=== PATIENT | female | born 1975 | race Caucasian/White ===

== ENCOUNTER 2017-06-02 18:47 | Observation (INO) | payer MEDICAID, SELFPAY ==
[2017-06-02 18:48] VITALS: BP 104/59; PULSE 80; RESP 12; TEMP 36.8; O2SAT 100; BMI 22.6
--- NOTE | 2017-06-02 19:40 | PC.NURSE ---
Addendum entered by Mateo Schulz RN 06/02/17 20:04: no loss of bladder or bowel Original Note: pt had convulsive episode at 1930, use of vns did not appear effective, iv placed, lorazapam given.
[2017-06-02 19:55] LABS: Basophils # 0.1 K/mm3 (0-0.2); Basophils % 0.7 % (0.1-2.0); Eosinophils # 0.1 K/mm3 (0.0-0.4); Eosinophils % 1.4 % (0.1-12.0); Hematocrit 44.8 % (37.0-47.0); Hemoglobin 13.8 g/dL (12.2-16.2); Lymphocytes # 2.5 K/mm3 (0.7-4.5); Lymphocytes % 30.5 K/mm3 (10-50); Mean Corpuscular HGB Conc 30.9 g/dL (31.8-35.4); Mean Corpuscular Hemoglobin 30.1 pg (27.0-31.2); Mean Corpuscular Volume 97.5 fl (81-99); Monocytes # 0.5 K/mm3 (0.1-1.0); Monocytes % 6.5 % (1.7-9.3); Neutrophils # 5.1 K/mm3 (1.8-7.8); Platelet Count 273 K/mm3 (142-424); Red Cell Distribution Width 12.3 % (11.5-17.5); White Blood Count 8.4 K/mm3 (4.8-10.8)
[2017-06-02 20:04] LABS: Alanine Aminotransferase 35 U/L (12-78); Albumin/Globulin Ratio 1.3 (1.1-1.8); Alkaline Phosphatase 67 U/L (46-116); Anion Gap 16.6 mEq/L (5-15); Aspartate Amino Transferase 20 U/L (15-37); Bilirubin,Total 0.4 mg/dL (0.2-1.0); Blood Urea Nitrogen 15 mg/dL (7-18); Calcium 8.7 mg/dL (8.5-10.1); Carbon Dioxide 25 mmol/L (21.0-32.0); Chloride 107 mmol/L (98-107); Creatinine Clearance Estimated 76 mL/min (0-300); Creatinine,Serum 0.98 mg/dL (0.55-1.02); Estimated Glomerular Filt Rate 63 ml/min (>60); GFR (African American) 76 ML/MIN (>60); Globulin 3.2 gm/dl (1.3-3.2); Glucose 111 mg/dL (74-106); Potassium 3.6 mmoL/L (3.5-5.1); Sodium 145 mmol/L (136-145); Total Protein,Serum 7.2 gm/dL (6.4-8.2)
--- NOTE | 2017-06-02 20:07 | CT_ITS ---
CT head/brain wo con HISTORY: ITS.REASON: seizure ORDERING PHYSICIAN: Sukumar Viveros MD PATIENT AGE: 41 years COMPARISON: 05/07/2016 TECHNIQUE: Axial images obtained without contrast. Brain and bone windows reviewed. FINDINGS: No midline shift, mass effect, intracranial hemorrhage, hydrocephalus, or extra-axial fluid collection is evident. There is a cavum septum pellucidum is a normal variant The calvarium has an unremarkable appearance. No mastoid effusion. No sinus air-fluid levels.. IMPRESSION: 1. No acute intracranial findings. 2. No change from 05/07/2016
[2017-06-02 20:36] LABS: Appearance,Urine SL CLOUDY (Clear); Bilirubin,Urine Negative (Negative); Blood, Urine Negative (Negative); Color,Urine YELLOW (Yellow); Glucose,Urine (UA) Negative (Negative); Ketones,Urine Negative (Negative); Leukocyte Esterase,Urine Negative (Negative); Microscopic, Urine URINE MICROSCOPIC (MICROSCOPIC); Nitrate,Urine Negative (Negative); Protein,Urine TRACE (Negative); Specific Gravity, Urine 1.015 (1.005-1.030); Urobilinogen,Urine 0.2 EU/dl (0.2)
--- NOTE | 2017-06-02 20:41 | HMH.EDSEIZ ---
ED Disposition Clinical Impression: Epileptic seizure Qualifiers: Epilepsy type: unspecified Intractability: not intractable Status epilepticus: without status epilepticus Qualified Code(s): G40.909 - Epilepsy, unspecified, not intractable, without status epilepticus Disposition: Admitted as Observation Condition on Discharge: Good - Critical Care Critical Care Time: No Attestation: On 06/02/17, the high probability of a clinically significant, sudden or life threatening deterioration of the following system(s) required my full and direct attention, intervention and personal management. The time I documented below is in addition to time spent performing reported procedures but includes the following listed in this critical care notation. Medical Decision Making - Medical Records Medical records reviewed: Yes: I reviewed the patient's medical records. Vital Signs: 06/02/17 18:48 06/02/17 21:32 Temperature 98.3 F 98.9 F Temperature Source Oral Rectal Pulse Rate [Left Radial] 80 68 Respiratory Rate 12 16 Blood Pressure [Left Arm] 117/87 Blood Pressure [Right Arm] 104/59 Blood Pressure Mean [Left Arm] 97 Blood Pressure Mean [Right Arm] 74 Blood Pressure Source [Left Arm] Automatic Cuff Blood Pressure Source [Right Arm] Automatic Cuff Blood Pressure Position [Left Arm] Supine Blood Pressure Position [Right Arm] Supine 02 Sat by Pulse Oximetry 100 100 Oxygen Delivery Method Room Air Nasal Cannula Oxygen Flow Rate (LPM) 2 - Lab Data Lab Results 06/02/17 19:35: WBC 8.4, RBC 4.60, Hgb 13.8, Hct 44.8, MCV 97.5, MCH 30.1, MCHC 30.9 L, RDW 12.3, Plt Count 273, MPV 9.0, Neut % (Auto) 61.0, Lymph % (Auto) 30.5, [place] % (Auto) 6.5, Eos % (Auto) 1.4, Baso % (Auto) 0.7, Neut # (Auto) 5.1, Lymph # (Auto) 2.5, [place] # (Auto) 0.5, Eos # (Auto) 0.1, Baso # (Auto) 0.1 06/02/17 19:35: Sodium 145, Potassium 3.6, Chloride 107, Carbon Dioxide 25, Anion Gap 16.6 H, BUN 15, Creatinine 0.98, Estimated Creat Clear 76, Estimated GFR 63, Est GFR ( Amer) 76, Glucose 111 H, Calcium 8.7, Total Bilirubin 0.4, AST 20, ALT 35, Alkaline Phosphatase 67, Total Protein 7.2, Albumin 4.0, Globulin 3.2, Albumin/Globulin Ratio 1.3 06/02/17 20:30: Urine Color Yellow, Urine Appearance Sl cloudy, Urine pH 7.0, Ur Specific [place] 1.015, Urine Protein Trace, Urine Glucose (UA) Negative, Urine Ketones Negative, Urine Blood Negative, Urine Nitrate Negative, Urine Bilirubin Negative, Urine Urobilinogen 0.2, Ur Leukocyte Esterase Negative, Urine RBC Occasional, Urine WBC Occasional, Ur Squamous Epith Cells 3-5, Amorphous Sediment 2+, Urine Bacteria 1+, Hyaline Casts Occasional 06/02/17 20:46: O2 % 100% ndb, ABG pH 7.39, ABG pCO2 35.3, ABG pO2 430.8 H, ABG HCO3 20.9 L, ABG Total CO2 22.0 L, ABG O2 Saturation 100, ABG Base Excess -4.1 L, Kervin Test Patient unable Result diagrams: 06/02/17 19:35 06/02/17 19:35 Orders (Tests/Meds): ED MEDICATIONS Generic Name Dose Route Start Last Admin Trade Name Freq PRN Reason Stop Dose Admin Sodium Chloride 1,000 mls @ 200 mls/hr 06/02/17 19:45 06/02/17 19:37 Sod Chloride 0.9% 1000ml Bag IV 07/02/17 19:44 200 mls/hr .Q5H ANTONIO Administration Discontinued Medications Generic Name Dose Route Start Last Admin Trade Name Freq PRN Reason Stop Dose Admin Lorazepam 1 mg 06/02/17 19:19 06/02/17 19:36 Ativan 2mg/Ml Vial IV 06/02/17 19:20 1 mg ONCE ONE Administration ORDERS Category Date Time Status CT head/brain wo con Stat Cat Scan 06/02/17 20:07 Taken XR chest AP Stat Exams 06/02/17 20:46 Taken - Radiology Data #1 Image(s): Chest Image Reviewed: Yes I reviewed the patient's radiology image Preliminary Findings: Normal/NAD - CT Data CT Scan: Head Time Received: 23:[address] Reviewed: Yes: I have viewed the radiologist's interpretation Preliminary Findings: Normal/NAD - Physician Consults Physician Consulted: eyad Reason -: Admission Additional Consult: fa
--- NOTE | 2017-06-02 20:46 | XR_ITS ---
XR chest AP HISTORY: Shortness of breath ITS.REASON: sob/sz ORDERING PHYSICIAN: Sukumar Viveros MD PATIENT AGE: 41 years COMPARISON: 05/07/2016 FINDINGS: The cardiomediastinal silhouette and pulmonary vascularity are within normal limits. Neurostimulator device once again noted projecting over the left upper chest with the leads in the left apical area in the paraspinal region. Lungs are otherwise clear. No acute bony abnormalities. IMPRESSION: No change with no acute finding
[2017-06-02 21:05] LABS: Amorphous Sediment,Urine 2+ /lpf; Bacteria,Urine 1+ /lpf; Hyaline Casts,Urine Occasional #/lpf (0); RBC,Urine Occasional #/hpf (0-3); WBC,Urine Occasional #/hpf (0-3)
[2017-06-02 21:14] LABS: ABG Base Excess -4.1 mmol/L (-2.4-2.3); ABG HCO3 20.9 mmhg (22.0-26.0); ABG Oxygen Saturation 100 % (90-100); ABG PCO2 35.3 mmhg (35.0-45.0); ABG PH 7.39 mmol/L (7.35-7.45); ABG PO2 430.8 mmhg (80-100)
[2017-06-02 21:17] LABS: Allen's Test Patient Unable
[2017-06-02 21:32] VITALS: BP 117/87; PULSE 68; RESP 16; TEMP 37.2; O2SAT 100
--- NOTE | 2017-06-02 22:27 | PC.NURSE ---
dr dennis spoke with dr castano about pt.
--- NOTE | 2017-06-02 22:33 | PC.NURSE ---
placed call for neuro, waiting for dr velazquez to return call.
--- NOTE | 2017-06-02 22:51 | PC.NURSE ---
dr croft spoke with dr dennis, to watch pt overnight, did not need transfer. dr dennis speaking with dr castano again at this time.
--- NOTE | 2017-06-02 23:20 | PC.NURSE ---
REPORT RECEIVED FROM ELLE NELSON
[2017-06-02 23:24] VITALS: BP 100/62; PULSE 72; RESP 14; TEMP 37; O2SAT 100
[2017-06-02 23:40] VITALS: BP 109/70; PULSE 82; RESP 18; TEMP 36.1; O2SAT 100; BMI 23.1
[2017-06-03 00:05] VITALS: O2SAT 100
[2017-06-03 04:00] VITALS: BP 104/60; PULSE 75; RESP 20; TEMP 36.3; O2SAT 100
--- NOTE | 2017-06-03 04:40 | PC.NURSE ---
NEW ADMIT THIS SHIFT WITH DX OF EPILEPTIC SEIZURE. SEIZURE PADS IN PLACE, NO SEIZURE ACTIVITY NOTED SINCE ARRIVING TO FLOOR. FAMILY MEMBER AT BEDSIDE. PT ANSWERED ALL QUESTIONS APPROPRIATELY, BUT DROWSY SINCE RECEIVED ATIVAN IN ER. IV SECURE AND PATENT INFUSING LR@75/HR. NO C/O PAIN OR DISCOMFORT. PT NEEDS HOME MEDS ORDERED. RESPIRATIONS EVEN AND UNLABORED. BREATH SOUNDS EQUAL AND CLEAR. PT STABLE. WILL CONTINUE TO MONITOR. REPORT TO BE GIVEN TO ONCOMING NURSE.
[2017-06-03 06:49] LABS: Basophils % 0.2 % (0.1-2.0); Eosinophils % 0.4 % (0.1-12.0); Hematocrit 40.5 % (37.0-47.0); Hemoglobin 12.8 g/dL (12.2-16.2); Lymphocytes % 9.2 K/mm3 (10-50); Mean Corpuscular HGB Conc 31.6 g/dL (31.8-35.4); Mean Corpuscular Hemoglobin 30.3 pg (27.0-31.2); Mean Corpuscular Volume 96.1 fl (81-99); Mean Platelet Volume 9.1 fl (7.4-10.4); Monocytes # 0.4 K/mm3 (0.1-1.0); Monocytes % 4.3 % (1.7-9.3); Neutrophils # 8.9 K/mm3 (1.8-7.8); Neutrophils % 85.9 % (37.0-80.0); Platelet Count 192 K/mm3 (142-424); Red Blood Count 4.22 M/mm3 (4.20-5.40); Red Cell Distribution Width 12.5 % (11.5-17.5); White Blood Count 10.3 K/mm3 (4.8-10.8)
[2017-06-03 06:55] LABS: MANUAL DIFFERENTIAL MANUAL DIFFERENTIAL (MANUAL DIFF)
[2017-06-03 07:02] LABS: Blood Urea Nitrogen 11 mg/dL (7-18); Carbon Dioxide 24 mmol/L (21.0-32.0); Chloride 109 mmol/L (98-107); Creatinine Clearance Estimated 101 mL/min (0-300); Creatinine,Serum 0.75 mg/dL (0.55-1.02); Estimated Glomerular Filt Rate 85 ml/min (>60); GFR (African American) 103 ML/MIN (>60); Glucose 100 mg/dL (74-106); Magnesium 1.9 mg/dL (1.4-2.2); Sodium 141 mmol/L (136-145)
--- NOTE | 2017-06-03 07:26 | P.CONPHA_ITS ---
[facility] Pharmacy VTE Monitoring - Patient Demographics Admission date: 06/02/17 Report Date: 06/03/17 Time: 07:25 Allergies/Adverse Reactions: Patient Allergies carbamazepine [CARBAMAZEPINE] Allergy (Unknown, Verified 06/02/17 18:50) diphenhydramine [DIPHENHYDRAMINE] Allergy (Unknown, Verified 06/02/17 18:50) divalproex sodium [DIVALPROEX SODIUM] Allergy (Unknown, Verified 06/02/17 18:50) Hydantoins [HYDANTOINS] Allergy (Unknown, Verified 06/02/17 18:50) isopropyl alcohol [ISOPROPYL ALCOHOL] Allergy (Unknown, Verified 06/02/17 18:50) lamotrigine [LAMOTRIGINE] Allergy (Unknown, Verified 06/02/17 18:50) levetiracetam [LEVETIRACETAM] Allergy (Unknown, Verified 06/02/17 18:50) loracarbef [LORACARBEF] Allergy (Unknown, Verified 06/02/17 18:50) methylprednisolone [METHYLPREDNISOLONE] Allergy (Unknown, Verified 06/02/17 18: 50) penicillin G [PENICILLIN G] Allergy (Unknown, Verified 06/02/17 18:50) Penicillins [PENICILLINS] Allergy (Unknown, Verified 06/02/17 20:58) phenytoin [PHENYTOIN] Allergy (Unknown, Verified 06/02/17 20:58) topiramate [TOPIRAMATE] Allergy (Unknown, Verified 06/02/17 20:58) valproic acid [VALPROIC ACID] Allergy (Unknown, Verified 06/02/17 20:58) zonisamide [ZONISAMIDE] Allergy (Unknown, Verified 06/02/17 20:58) Height: 1.68 m Weight: 64.892 kg Patient Problems: Current Active Problems Epileptic seizure (Acute) - VTE Risk Labs: VTE Related Lab Results Hgb 12.8 g/dL (12.2-16.2) 06/03/17 06:09 Hct 40.5 % (37.0-47.0) 06/03/17 06:09 Plt Count 192 K/mm3 (142-424) D 06/03/17 06:09 BUN 11 mg/dL (7-18) D 06/03/17 06:09 Creatinine 0.75 mg/dL (0.55-1.02) D 06/03/17 06:09 Estimated Creat Clear 101 mL/min (0-300) 06/03/17 06:09 Was VTE Risk Assessment Performed: Yes VTE Score: 3 VTE Risk Level: Low Risk - Prophylaxis VTE Prophylaxis Ordered?: Yes Types of VTE Prophylaxis: TEDS Knee High Location of Applied Device: Bilateral Lower Extremeties - VTE Diagnosis Confirmed Treatment or plan recommended: Continue Current Treatment
--- NOTE | 2017-06-03 07:41 | PC.NURSE ---
REPORT GIVEN TO Emily GUADALUPE W/C
[2017-06-03 08:00] VITALS: BP 101/50; PULSE 77; RESP 16; TEMP 36.7; O2SAT 95
[2017-06-03 08:03] LABS: Lymphocytes % 8 % (10-50); Monocytes % 4 % (2-9); Neutrophils % 86 % (42-76); Total Cells Counted 100
[2017-06-03 08:04] LABS: Platelet Estimate Normal
--- NOTE | 2017-06-03 09:19 | HMH.HP ---
*Admission Date: 06/02/17 *Chief complaint: seizures *History of present illness: 41 year old female with an ongoing history of seizures who is followed by neurology and has a vagus verve stimulator presented the the ED after she had two seizures within one hour. Her mother reports seizures lasted approx 4-5 minutes with loss of bladder. Patient remained lethargic and disoriented so she brought her to the ED for evaluation. In the ED, patient had a third seizure and was given Ativan. CBC, CMP, UA, CXR and CT head were obtained and found to be unremarkable. Prior to yesterday, last seizure was 13 months ago. Patient reports she has had headaches and dizziness for the last two weeks. She has not missed any doses of her medications prior to the seizure. Patient denies any cough, congestion, fevers or recent illnes. ED physician spoke with her neurologist Dr. Patel who recommended observing her overnight. Patient was admitted for observation. [facility] History Medical History: Denies:: Cancer, Diabetes Mellitus Type 1, Diabetes Mellitus Type 2, MRSA Other Medical History: Reports: Anemia Other Surgeries: Yes: Hysterectomy-Total Amputation: No Fractures: No - *Social History Educational Level: Completed College Smoking Status: Former smoker # Packs/Day (cigarettes): 1 Smoking End Date: 15 YEARS AGO Alcohol Intake: never Occupational Status: employed Housing: house Household Members: family - Psychiatric History Expresses thoughts of harming self/others: None Suicide Plan Description: No Plan *Family Hx:: Anemia, Asthma, Coronary Artery Disease, Heart Attack, Hyperlipidemia, Hypertension, Kidney Disease, Stroke Review of Systems - Review of Systems Review of systems:: pertinent systems reviewed and negative unless documented below - *Neurologic Reports confusion, Reports dizziness, Reports headache(s), Reports seizure-like activity Meds Home Medications Medication Instructions Recorded Confirmed Type Albuterol Sulfate [Albuterol HFA 1 puff IH Q4HP PRN 06/02/17 06/02/17 History Inhaler] Albuterol Sulfate [Albuterol 2.5 mg IH QIDP PRN 06/02/17 06/02/17 History Sulfate 2.5mg/0.5ml Neb] Budesonide/Formoterol Fumarate 10.2 gm IH BID 06/02/17 06/03/17 History [Symbicort 160-4.5 Mcg Inhaler] Fluticasone Propionate [Flovent 50 mcg IH HS 06/02/17 06/03/17 History Diskus] Lacosamide [Vimpat] 200 mg PO DAILY 06/02/17 06/03/17 History Lacosamide [Vimpat] 300 mg PO HS 06/02/17 06/03/17 History SUMAtriptan succinate [Imitrex] 50 mg PO NEEDED PRN 06/02/17 06/02/17 History Topiramate [Topiramate] 3 tab PO DAILY 06/02/17 06/03/17 History Allergies Allergy/AdvReac Type Severity Reaction Status Date / Time carbamazepine [CARBAMAZEPINE] Allergy Unknown Verified 06/02/17 18:50 diphenhydramine Allergy Unknown Verified 06/02/17 18:50 [DIPHENHYDRAMINE] divalproex sodium Allergy Unknown Verified 06/02/17 18:50 [DIVALPROEX SODIUM] Hydantoins [HYDANTOINS] Allergy Unknown Verified 06/02/17 18:50 isopropyl alcohol Allergy Unknown Verified 06/02/17 18:50 [ISOPROPYL ALCOHOL] lamotrigine [LAMOTRIGINE] Allergy Unknown Verified 06/02/17 18:50 levetiracetam [LEVETIRACETAM] Allergy Unknown Verified 06/02/17 18:50 loracarbef [LORACARBEF] Allergy Unknown Verified 06/02/17 18:50 methylprednisolone Allergy Unknown Verified 06/02/17 18:50 [METHYLPREDNISOLONE] penicillin G [PENICILLIN G] Allergy Unknown Verified 06/02/17 18:50 Penicillins [PENICILLINS] Allergy Unknown Verified 06/02/17 20:58 phenytoin [PHENYTOIN] Allergy Unknown Verified 06/02/17 20:58 topiramate [TOPIRAMATE] Allergy Unknown Verified 06/02/17 20:58 valproic acid [VALPROIC ACID] Allergy Unknown Verified 06/02/17 20:58 zonisamide [ZONISAMIDE] Allergy Unknown Verified 06/02/17 20:58 Exam Vital signs and Labs for Last 24 Hours: Temp Pulse Resp BP Pulse Ox 97.3 F L 75 20 104/60 100 06/03/17 04:00 06/03/17 04:00 05/11
--- NOTE | 2017-06-03 09:26 | P.HP_ITS ---
*Admission Date: 06/02/17 *Chief complaint: seizures *History of present illness: 41 year old female with an ongoing history of seizures who is followed by neurology and has a vagus verve stimulator presented the the ED after she had two seizures within one hour. Her mother reports seizures lasted approx 4-5 minutes with loss of bladder. Patient remained lethargic and disoriented so she brought her to the ED for evaluation. In the ED, patient had a third seizure and was given Ativan. CBC, CMP, UA, CXR and CT head were obtained and found to be unremarkable. Prior to yesterday, last seizure was 13 months ago. Patient reports she has had headaches and dizziness for the last two weeks. She has not missed any doses of her medications prior to the seizure. Patient denies any cough, congestion, fevers or recent illnes. ED physician spoke with her neurologist Dr. Patel who recommended observing her overnight. Patient was admitted for observation. [facility] History Medical History: Denies:: Cancer, Diabetes Mellitus Type 1, Diabetes Mellitus Type 2, MRSA Other Medical History: Reports: Anemia Other Surgeries: Yes: Hysterectomy-Total Amputation: No Fractures: No - *Social History Educational Level: Completed College Smoking Status: Former smoker # Packs/Day (cigarettes): 1 Smoking End Date: 15 YEARS AGO Alcohol Intake: never Occupational Status: employed Housing: house Household Members: family - Psychiatric History Expresses thoughts of harming self/others: None Suicide Plan Description: No Plan *Family Hx:: Anemia, Asthma, Coronary Artery Disease, Heart Attack, Hyperlipidemia, Hypertension, Kidney Disease, Stroke Review of Systems - Review of Systems Review of systems:: pertinent systems reviewed and negative unless documented below - *Neurologic Reports confusion, Reports dizziness, Reports headache(s), Reports seizure-like activity Meds Home Medications Medication Instructions Recorded Confirmed Type Albuterol Sulfate [Albuterol HFA 1 puff IH Q4HP PRN 06/02/17 06/02/17 History Inhaler] Albuterol Sulfate [Albuterol 2.5 mg IH QIDP PRN 06/02/17 06/02/17 History Sulfate 2.5mg/0.5ml Neb] Budesonide/Formoterol Fumarate 10.2 gm IH BID 06/02/17 06/03/17 History [Symbicort 160-4.5 Mcg Inhaler] Fluticasone Propionate [Flovent 50 mcg IH HS 06/02/17 06/03/17 History Diskus] Lacosamide [Vimpat] 200 mg PO DAILY 06/02/17 06/03/17 History Lacosamide [Vimpat] 300 mg PO HS 06/02/17 06/03/17 History SUMAtriptan succinate [Imitrex] 50 mg PO NEEDED PRN 06/02/17 06/02/17 History Topiramate [Topiramate] 3 tab PO DAILY 06/02/17 06/03/17 History Allergies Allergy/AdvReac Type Severity Reaction Status Date / Time carbamazepine [CARBAMAZEPINE] Allergy Unknown Verified 06/02/17 18:50 diphenhydramine Allergy Unknown Verified 06/02/17 18:50 [DIPHENHYDRAMINE] divalproex sodium Allergy Unknown Verified 06/02/17 18:50 [DIVALPROEX SODIUM] Hydantoins [HYDANTOINS] Allergy Unknown Verified 06/02/17 18:50 isopropyl alcohol Allergy Unknown Verified 06/02/17 18:50 [ISOPROPYL ALCOHOL] lamotrigine [LAMOTRIGINE] Allergy Unknown Verified 06/02/17 18:50 levetiracetam [LEVETIRACETAM] Allergy Unknown Verified 06/02/17 18:50 loracarbef [LORACARBEF] Allergy Unknown Verified 06/02/17 18:50 methylprednisolone Allergy Unknown Verified 06/02/17 18:50 [METHYLPREDNISOLONE] penicillin G [PENICILLIN G]
[2017-06-03 13:22] LABS: Amphetamine/Metha Screen,Urine Negative ng/mL (<1000); Barbiturates Screen,Urine Negative ng/mL (<200); Benzodiazepines Screen,Urine Negative ng/mL (200); Cannabinoid Screen,Urine Negative ng/mL (<50); Cocaine Screen,Urine Negative ng/g (<300); Methadone Screen,Urine Negative ng/mL (<300); Opiate Screen,Urine Negative ng/mL (<300); Phencyclidine Screen,Urine Negative ng/mL (<25)
[2017-06-03 16:00] VITALS: BP 93/50; PULSE 85; RESP 18; TEMP 37.1; O2SAT 100
--- NOTE | 2017-06-03 18:49 | PC.NURSE ---
PATIENT STATES SHE IS FEELING BETTER. SHE IS MUCH MORE ALERT THAN THIS MORNING AND AFTERNOON. DENIES PAIN AT THIS TIME. C/O DIZZINESS WHEN AMBULATING TO [facility]. SHE HAS HAD SEVERAL BOWEL MOVEMENTS TODAY. PATIENT STATES SHE THINKS SHE BIT HER TONGUE DURING HER SEIZURE YESTERDAY. CALL LIGHT WITHIN REACH WILL CONTINUE TO MONITOR
--- NOTE | 2017-06-03 19:14 | PC.NURSE ---
REPORT GIVEN TO GIANLUCA SHANKS RN
--- NOTE | 2017-06-03 19:15 | PC.NURSE ---
PT DNR, PURPLE BRACELET ON, SIGNED AND ON CHART. REPORT RECEIVED FROM SALLY
[2017-06-03 20:00] VITALS: BP 88/45; PULSE 85; RESP 16; TEMP 36.7; O2SAT 98
[2017-06-03 20:30] VITALS: O2SAT 98
[2017-06-04 04:00] VITALS: BP 96/63; PULSE 80; RESP 18; TEMP 36.7; O2SAT 99
--- NOTE | 2017-06-04 05:32 | PC.NURSE ---
PT SLEPT MOST ALL OF SHIFT, MOM AT BEDSIDE. IV REMAIN INTACT AND PATENT, INFUSING LR @75/HR. NO COMPLAINTS OF PAIN OR DISCOMFORT REPORTED. SEIZURE PADS IN PLACE. NO SEIZURES NOTED. BREATH SOUNDS EQUAL AND CLEAR ON ROOM AIR. PT HAS TEDS ON BILATERALLY. PT STABLE. WILL CONTINUE TO MONITOR. REPORT TO BE GIVEN TO ONCOMING NURSE.
--- NOTE | 2017-06-04 07:29 | PC.NURSE ---
REPORT GIVEN TO Keanu FRASER W/C
[2017-06-04 08:00] VITALS: BP 104/58; PULSE 81; RESP 18; TEMP 36.8; O2SAT 100
--- NOTE | 2017-06-04 08:17 | HMH.DCSUM ---
General - General Admission date: 06/02/17 Discharge date: 06/04/17 HPI HPI: 41 year old female with an ongoing history of seizures who is followed by neurology and has a vagus verve stimulator presented the the ED after she had two seizures within one hour. Her mother reports seizures lasted approx 4-5 minutes with loss of bladder. Patient remained lethargic and disoriented so she brought her to the ED for evaluation. In the ED, patient had a third seizure and was given Ativan. CBC, CMP, UA, CXR and CT head were obtained and found to be unremarkable. Prior to yesterday, last seizure was 13 months ago. Patient reports she has had headaches and dizziness for the last two weeks. She has not missed any doses of her medications prior to the seizure. Patient denies any cough, congestion, fevers or recent illnes. ED physician spoke with her neurologist Dr. Patel who recommended observing her overnight. Patient was admitted for observation. Objective Vital signs: Temp Pulse Resp BP Pulse Ox 98.1 F 80 18 96/63 99 06/04/17 04:00 06/04/17 04:00 06/04/17 04:00 06/04/17 04:00 06/04/17 04:00 Narrative: This morning patient is awake, alert, has relatively slow speech but is not slurred, oriented ?3. Nursing reports that she ate a very good breakfast. Cardiopulmonary exam unremarkable, able to move all extremities well, coordination is good because she has been up and around and walking well. Hospital Course Hospital Course: Patient was admitted to hospital, no further benzodiazepines were given, patient was observed and had a fairly prolonged postictal state which was probably exacerbated by the benzodiazepine. She improved overnight and this morning is doing well, neurologically intact. 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 I talked with her and her mother about possibly having Diastat at home and they are interested in a prescription for this and we discussed the mechanism of action and indications. Meds Home Medications Medication Instructions Recorded Confirmed Type Albuterol Sulfate [Albuterol HFA 1 puff IH Q4HP PRN 06/02/17 06/02/17 History Inhaler] Albuterol Sulfate [Albuterol 2.5 mg IH QIDP PRN 06/02/17 06/02/17 History Sulfate 2.5mg/0.5ml Neb] Budesonide/Formoterol Fumarate 10.2 gm IH BID 06/02/17 06/03/17 History [Symbicort 160-4.5 Mcg Inhaler] Fluticasone Propionate [Flovent 50 mcg IH HS 06/02/17 06/03/17 History Diskus] Lacosamide [Vimpat] 200 mg PO DAILY 06/02/17 06/03/17 History Lacosamide [Vimpat] 300 mg PO HS 06/02/17 06/03/17 History SUMAtriptan succinate [Imitrex] 50 mg PO NEEDED PRN 06/02/17 06/02/17 History Topiramate [Topiramate] 75 mg PO BID 06/02/17 06/03/17 History Allergies Allergy/AdvReac Type Severity Reaction Status Date / Time carbamazepine [CARBAMAZEPINE] Allergy Unknown Verified 06/02/17 18:50 diphenhydramine Allergy Unknown Verified 06/02/17 18:50 [DIPHENHYDRAMINE] divalproex sodium Allergy Unknown Verified 06/02/17 18:50 [DIVALPROEX SODIUM] Hydantoins [HYDANTOINS] Allergy Unknown Verified 06/02/17 18:50 isopropyl alcohol Allergy Unknown Verified 06/02/17 18:50 [ISOPROPYL ALCOHOL] lamotrigine [LAMOTRIGINE] Allergy Unknown Verified 06/02/17 18:50 levetiracetam [LEVETIRACETAM] Allergy Unknown Verified 06/02/17 18:50 loracarbef [LORACARBEF] Allergy Unknown Verified 06/02/17 18:50 methylprednisolone Allergy Unknown Verified 06/02/17 18:50 [METHYLPREDNISOLONE] penicillin G [PENICILLIN G] Allergy Unknown Verified 06/02/17 18:50 Penicillins [PENICILLINS] Allergy Unknown Verified 06/02/17 20:58 phenytoin [PHENYTOIN] Allergy Unknown Verified 06/02/17 20:58 topiramate [TOPIRAMATE] Allergy Unknown Verified 06/02/17 20:58 valproic acid [VALPROIC ACID] Allergy Unknown Verified 06/02/17 20:58 zonisamide [ZONISAMIDE] Allergy Unknown Verified 06/02/17 20:58 Discha
--- NOTE | 2017-06-04 08:22 | P.DS_ITS ---
General - General Admission date: 06/02/17 Discharge date: 06/04/17 HPI HPI: 41 year old female with an ongoing history of seizures who is followed by neurology and has a vagus verve stimulator presented the the ED after she had two seizures within one hour. Her mother reports seizures lasted approx 4-5 minutes with loss of bladder. Patient remained lethargic and disoriented so she brought her to the ED for evaluation. In the ED, patient had a third seizure and was given Ativan. CBC, CMP, UA, CXR and CT head were obtained and found to be unremarkable. Prior to yesterday, last seizure was 13 months ago. Patient reports she has had headaches and dizziness for the last two weeks. She has not missed any doses of her medications prior to the seizure. Patient denies any cough, congestion, fevers or recent illnes. ED physician spoke with her neurologist Dr. Patel who recommended observing her overnight. Patient was admitted for observation. Objective Vital signs: Temp Pulse Resp BP Pulse Ox 98.1 F 80 18 96/63 99 06/04/17 04:00 06/04/17 04:00 06/04/17 04:00 06/04/17 04:00 06/04/17 04:00 Narrative: This morning patient is awake, alert, has relatively slow speech but is not slurred, oriented ?3. Nursing reports that she ate a very good breakfast. Cardiopulmonary exam unremarkable, able to move all extremities well, coordination is good because she has been up and around and walking well. Hospital Course Hospital Course: Patient was admitted to hospital, no further benzodiazepines were given, patient was observed and had a fairly prolonged postictal state which was probably exacerbated by the benzodiazepine. She improved overnight and this morning is doing well, neurologically intact. 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 I talked with her and her mother about possibly having Diastat at home and they are interested in a prescription for this and we discussed the mechanism of action and indications. Meds Home Medications Medication Instructions Recorded Confirmed Type Albuterol Sulfate [Albuterol HFA 1 puff IH Q4HP PRN 06/02/17 06/02/17 History Inhaler] Albuterol Sulfate [Albuterol 2.5 mg IH QIDP PRN 06/02/17 06/02/17 History Sulfate 2.5mg/0.5ml Neb] Budesonide/Formoterol Fumarate 10.2 gm IH BID 06/02/17 06/03/17 History [Symbicort 160-4.5 Mcg Inhaler] Fluticasone Propionate [Flovent 50 mcg IH HS 06/02/17 06/03/17 History Diskus] Lacosamide [Vimpat] 200 mg PO DAILY 06/02/17 06/03/17 History Lacosamide [Vimpat] 300 mg PO HS 06/02/17 06/03/17 History SUMAtriptan succinate [Imitrex] 50 mg PO NEEDED PRN 06/02/17 06/02/17 History Topiramate [Topiramate] 75 mg PO BID 06/02/17 06/03/17 History Allergies Allergy/AdvReac Type Severity Reaction Status Date / Time carbamazepine [CARBAMAZEPINE] Allergy Unknown Verified 06/02/17 18:50 diphenhydramine Allergy Unknown Verified 06/02/17 18:50 [DIPHENHYDRAMINE] divalproex sodium Allergy Unknown Verified 06/02/17 18:50 [DIVALPROEX SODIUM] Hydantoins [HYDANTOINS] Allergy Unknown Verified 06/02/17 18:50 isopropyl alcohol Allergy Unknown Verified 06/02/17 18:50 [ISOPROPYL ALCOHOL] lamotrigine [LAMOTRIGINE] Allergy Unknown Verified 06/02/17 18:50 levetiracetam [LEVETIRACETAM] Allergy Unknown Verified 06/02/17 18:50 loracarbef [SAMMY
== END 2017-06-04 11:07 | disposition home or self-care (01) ==
LOC: ER 22:45 → 2ND 23:13
PROVIDERS: Emergency Medicine; Nurse Practitioner Family; Admitting Provider Internal Medicine Adolescent Medicine; Emergency Provider Emergency Medicine; PCP Internal Medicine Adolescent Medicine; Visit Provider Internal Medicine Adolescent Medicine
DX: G40.909 Epilepsy, unspecified, not intractable, without status epilepticus (principal); Z79.51 Long term (current) use of inhaled steroids; Z79.899 Other long term (current) drug therapy; Z88.0 Allergy status to penicillin; Z88.8 Allergy status to other drugs, medicaments and biological substances; Z90.710 Acquired absence of both cervix and uterus; Z87.891 Personal history of nicotine dependence; Z82.5 Family history of asthma and other chronic lower respiratory diseases; Z82.49 Family history of ischemic heart disease and other diseases of the circulatory system; Z83.49 Family history of other endocrine, nutritional and metabolic diseases; Z84.1 Family history of disorders of kidney and ureter; Z82.3 Family history of stroke; Z66 Do not resuscitate
CPT/HCPCS: 70450; 71045; 80048; 80053; 80305; 81001; 82803; 83735; 85007; 85025; 96366; 99284; G0378

== ENCOUNTER 2019-01-30 14:54 | Observation (INO) ==
--- NOTE | 2019-01-30 15:30 | Emergency Department Note ---
ED Disposition Clinical Impression: Sinusitis Disposition: Home, Self-Care Condition on Discharge: Good Instructions: DI for Sinusitis Additional Instructions: recheck with dr. sol in 2-3 days, take antibiotics as directed, drink lots fluids. Prescriptions: levoFLOXacin [Levaquin 500mg tab] 500 mg PO DAILY #7 tab predniSONE [Prednisone 20mg Tab] 20 mg PO BID 5 Days #10 tab Referrals: Mane Sol [Primary Care Provider] - Time of Disposition: 18:00 - Critical Care Critical Care Time: No Attestation: On 01/30/19, the high probability of a clinically significant, sudden or life threatening deterioration of the following system(s) required my full and direct attention, intervention and personal management. The time I documented below is in addition to time spent performing reported procedures but includes the following listed in this critical care notation. Medical Decision Making - Medical Records Medical records reviewed: Yes: I reviewed the patient's medical records. - [place] Inquiry Pt receiving controlled substance: No [place] was queried for this patient: No Vital Signs: 01/30/19 15:00 01/30/19 15:22 01/30/19 15:27 Temperature 98.8 F Temperature Source Oral Pulse Rate [Orthostatic Lying Right] 54 L Pulse Rate [Orthostatic Sitting] 51 L Pulse Rate [Orthostatic Standing] 61 Pulse Rate [Right Radial] 69 58 L Respiratory Rate 16 Blood Pressure [Orthostatic Lying Right Arm] 100/61 L Blood Pressure [Orthostatic Sitting] 102/88 L Blood Pressure [Orthostatic Standing] 101/67 L Blood Pressure [Right Arm] 101/69 L 100/60 L Blood Pressure Mean [Right Arm] 79 73 Blood Pressure Source [Right Arm] Automatic Cuff Blood Pressure Position [Right Arm] Sitting 02 Sat by Pulse Oximetry 97 95 Oxygen Delivery Method Room Air 01/30/19 17:00 Temperature Temperature Source Pulse Rate [Orthostatic Lying Right] Pulse Rate [Orthostatic Sitting] Pulse Rate [Orthostatic Standing] Pulse Rate [Right Radial] 54 L Respiratory Rate Blood Pressure [Orthostatic Lying Right Arm] Blood Pressure [Orthostatic Sitting] Blood Pressure [Orthostatic Standing] Blood Pressure [Right Arm] 102/61 L Blood Pressure Mean [Right Arm] 74 Blood Pressure Source [Right Arm] Blood Pressure Position [Right Arm] 02 Sat by Pulse Oximetry 97 Oxygen Delivery Method - Lab Data Lab results reviewed: Yes: I reviewed the patient's lab results. Lab Results 01/30/19 15:00: WBC 5.0, RBC 4.40, Hgb 13.3, Hct 41.9, MCV 95.2, MCH 30.2, MCHC 31.7 L, RDW 12.4, Plt Count 220, MPV 8.9, Neut % (Auto) 61.8, Lymph % (Auto) 26.6, [place] % (Auto) 6.8, Eos % (Auto) 3.9, Baso % (Auto) 0.8, Neut # (Auto) 3.1, Lymph # (Auto) 1.3, [place] # (Auto) 0.3, Eos # (Auto) 0.2, Baso # (Auto) 0.0 01/30/19 15:00: Sodium 146 H, Potassium 4.0, Chloride 107, Carbon Dioxide 29, Anion Gap 14.0, BUN 13, Creatinine 0.95, Estimated Creat Clear 81, Estimated GFR 64, Est GFR ( Amer) 78, Glucose 86, Calcium 9.1, Total Bilirubin 0.3, AST 22, ALT 25, Alkaline Phosphatase 61, Total Protein 7.1, Albumin 3.9, Globulin 3.2, Albumin/Globulin Ratio 1.2 01/30/19 16:34: Lactate 1.8 Result diagrams: 01/30/19 15:00 01/30/19 15:00 Orders (Tests/Meds): ED MEDICATIONS Generic Name Dose Route Start Last Admin Trade Name Freq PRN Reason Stop Dose Admin Levofloxacin/Dextrose 750 mg in 150 mls @ 100 mls/hr 01/30/19 16:30 01/30/19 17:08 Levofloxacin 750mg/150ml Premix IV 02/13/19 16:29 100 mls/hr Q24H ANTONIO Administration Protocol Discontinued Medications Generic Name Dose Route Start Last Admin Trade Name Freq PRN Reason Stop Dose Admin Sodium Chloride 1,000 mls @ 999 mls/hr 01/30/19 15:30 01/30/19 16:04 Sod Chlor 0.9% 1000ml Bag IV 01/30/19 17:30 999 mls/hr .Q1H1M ANTONIO Administration Ketorolac Tromethamine 30 mg 01/30/19 15:25 01/30/19 15:33 Toradol 30mg/Ml Vial IV 01/30/19 15:26 30 mg ONCE ONE Administration Ondansetron HCl 4 mg 01/30/19 15:25 01/30/19 15:33 Zofran 4mg/2ml Vial IV 01/30/19 15:26 4 mg ONCE ONE Administration ORDERS Category Date Time Status Blood Culture Stat Micro 01/30/19 16:34 Received General Adult HPI - General Chief complaint: Weakness Stated complaint: holt earaches low blood pressure Time Seen by Provider: 01/30/19 15:27 Mode of Arrival: Wheelchair Source of Information: Patient Limitations: No Limitations Description of Symptoms (Recalled from ER Triage Doc. by RN): PT BROUGHT TO ED VIA W/C BY NURSING STAFF AT DR SOL' OFFICE WITH C/O LOW BP. PT ADVISES SHE WAS BEING SEEN IN DR SOL' OFFICE TODAY FOR A HOLT AND EARACHE. - History of Present Illness HPI narrative: sinusitis symptoms and left earache, headache. Was diagnosed with presumptive sepsis by Dr. Sol today because of hypotension. no vomiting/diarrhea. Has history of seizure disorder, none today or recent - Related Data Home Medications Medication Instructions Recorded Confirmed Albuterol Sulfate [Albuterol HFA 1 puff IH Q4HP PRN 06/02/17 06/02/17 Inhaler] Albuterol Sulfate [Albuterol 2.5 mg IH QIDP PRN 06/02/17 06/02/17 Sulfate 2.5mg/0.5ml Neb] Budesonide/Formoterol Fumarate 10.2 gm IH BID 06/02/17 06/03/17 [Symbicort 160-4.5 Mcg Inhaler] Fluticasone Propionate [Flovent 50 mcg IH HS 06/02/17 06/03/17 Diskus] Lacosamide [Vimpat] 200 mg PO DAILY 06/02/17 06/03/17 Lacosamide [Vimpat] 300 mg PO HS 06/02/17 06/03/17 SUMAtriptan succinate [Imitrex] 50 mg PO NEEDED PRN 06/02/17 06/02/17 Topiramate 75 mg PO BID 06/02/17 06/03/17 Previous Rx's Medication Instructions Recorded diazePAM [Diastat Acudial] 1 each RC ONCE 1 Days #1 kit 01/26/18 levoFLOXacin [Levaquin 500mg 500 mg PO DAILY #7 tab 01/30/19 tab] predniSONE [Prednisone 20mg 20 mg PO BID 5 Days #10 tab 01/30/19 Tab] Allergies Allergy/AdvReac Type Severity Reaction Status Date / Time carbamazepine [CARBAMAZEPINE] Allergy Unknown Verified 06/02/17 18:50 diphenhydramine Allergy Unknown Verified 06/02/17 18:50 [DIPHENHYDRAMINE] divalproex sodium Allergy Unknown Verified 06/02/17 18:50 [DIVALPROEX SODIUM] Hydantoins [HYDANTOINS] Allergy Unknown Verified 06/02/17 18:50 isopropyl alcohol Allergy Unknown Verified 06/02/17 18:50 [ISOPROPYL ALCOHOL] lamotrigine [LAMOTRIGINE] Allergy Unknown Verified 06/02/17 18:50 levetiracetam [LEVETIRACETAM] Allergy Unknown Verified 06/02/17 18:50 loracarbef [LORACARBEF] Allergy Unknown Verified 06/02/17 18:50 methylprednisolone Allergy Unknown Verified 06/02/17 18:50 [METHYLPREDNISOLONE] penicillin G [PENICILLIN G] Allergy Unknown Verified 06/02/17 18:50 Penicillins [PENICILLINS] Allergy Unknown Verified 06/02/17 20:58 phenytoin [PHENYTOIN] Allergy Unknown Verified 06/02/17 20:58 topiramate [TOPIRAMATE] Allergy Unknown Verified 06/02/17 20:58 valproic acid [VALPROIC ACID] Allergy Unknown Verified 06/02/17 20:58 zonisamide [ZONISAMIDE] Allergy Unknown Verified 06/02/17 20:58 [facility] History - Hepatitis A Screen Drug use history?: No High risk sexual behaviors?: No History of sexually transmitted infection?: No Currently employed?: No Childcare worker?: No Do you have indoor plumbing?: Yes Do you have electricity?: Yes Attestation statement:: This patient has been screened for Hepatitis A risk factors. I have reviewed the patient's past medical history: Yes Medical History: Denies:: Cancer, Diabetes Mellitus Type 1, Diabetes Mellitus Type 2, MRSA Other Medical History: Reports: Anemia Laterality Cases: Bilateral: Tonsillectomy Other Surgeries: Yes: Hysterectomy-Total Amputation: No Fractures: No - Social History Smoking Status: Never smoker # Packs/Day (cigarettes): 1 Alcohol Intake: never Occupational Status: employed Housing: house Household Members: family Family Hx:: Anemia, Asthma, Coronary Artery Disease, Heart Attack, Hyperlipidemia, Hypertension, Kidney Disease, Stroke ROS Obtained: Yes All systems reviewed & no additional complaints - Constitutional Constitutional: Reports chills, Reports fever(s) - Eyes Eyes: Reports system reviewed and no additional complaints, except as docu - ENT Ears, Nose, Mouth, and Throat: Reports otalgia, Reports headache(s), Reports sinus pain, Reports sinus pressure - Cardiovascular Cardiovascular: Denies chest pain, Denies chest pain at rest, Denies dyspnea - Respiratory Respiratory: No dyspnea - Gastrointestinal Gastrointestingal: Denies: abdominal pain - Genitourinary Female Genitourinary: Denies dysuria, Denies flank pain - Musculoskeletal Musculoskeletal: Denies joint swelling - Integumentary/Breasts Skin/Breast: Denies rash, Denies skin pain - Neurologic Neurologic: Reports headache(s) - Hematologic/Lymphatic Henatologic/Lymphatic: Denies easy bleeding, Denies easy bruising Physical Exam - General General appearance: alert, in no apparent distress - Head Head exam: atraumatic, normocephalic, normal inspection - Eye Eye exam: Present: normal appearance, PERRL, EOMI - ENT ENT exam: Present: normal oropharynx, other (left TM occluded wax, ). Absent: TM's normal bilaterally - Neck Neck exam: Present: trachea midline. Absent: tenderness, meningismus, lymp hadenopathy - Respiratory Respiratory exam: Present: normal lung sounds bilaterally. Absent: respiratory distress - Cardiovascular Cardiovascular exam: Present: regular rate, normal rhythm. Absent: JVD - Abdominal Exam Abdominal exam: Present: soft, normal bowel sounds. Absent: distention, tenderness, guarding - Extremities Exam Extremities exam: Present: normal inspection, full ROM, normal capillary refill. Absent: calf tenderness - Back Exam Back exam: Present: normal inspection. Absent: tenderness - Neurological Exam Neurological exam: Present: alert - Psychiatric Psychiatric exam: Present: normal affect, normal mood - Skin Skin exam: Present: warm
[2019-01-30 15:38] LABS: Basophils % 0.8 % (0.1-2.0); Eosinophils # 0.2 K/mm3 (0.0-0.4); Eosinophils % 3.9 % (0.1-12.0); Hematocrit 41.9 % (37.0-47.0); Hemoglobin 13.3 g/dL (12.2-16.2); Lymphocytes # 1.3 K/mm3 (0.7-4.5); Lymphocytes % 26.6 % (10-50); Mean Corpuscular HGB Conc 31.7 g/dL (31.8-35.4); Mean Corpuscular Volume 95.2 fl (81-99); Mean Platelet Volume 8.9 fl (7.4-10.4); Monocytes # 0.3 K/mm3 (0.1-1.0); Monocytes % 6.8 % (1.7-9.3); Neutrophils # 3.1 K/mm3 (1.8-7.8); Neutrophils % 61.8 % (37.0-80.0); Platelet Count 220 K/mm3 (142-424); Red Cell Distribution Width 12.4 % (11.5-17.5)
[2019-01-30 15:54] LABS: Albumin Level 3.9 gm/dL (3.4-5.0); Albumin/Globulin Ratio 1.2 (1.1-1.8); Bilirubin,Total 0.3 mg/dL (0.2-1.0); Calcium 9.1 mg/dL (8.5-10.1); Globulin 3.2 gm/dl (1.3-3.2); Total Protein,Serum 7.1 gm/dL (6.4-8.2)
--- NOTE | 2019-01-31 07:14 | Pharmacy Consult Notes ---
[facility] Pharmacy VTE Monitoring - Patient Demographics Admission date: 01/30/19 Report Date: 01/31/19 Time: 07:13 Allergies/Adverse Reactions: Patient Allergies carbamazepine [CARBAMAZEPINE] Allergy (Unknown, Verified 06/02/17 18:50) diphenhydramine [DIPHENHYDRAMINE] Allergy (Unknown, Verified 06/02/17 18:50) divalproex sodium [DIVALPROEX SODIUM] Allergy (Unknown, Verified 06/02/17 18:50) Hydantoins [HYDANTOINS] Allergy (Unknown, Verified 06/02/17 18:50) isopropyl alcohol [ISOPROPYL ALCOHOL] Allergy (Unknown, Verified 06/02/17 18:50) lamotrigine [LAMOTRIGINE] Allergy (Unknown, Verified 06/02/17 18:50) levetiracetam [LEVETIRACETAM] Allergy (Unknown, Verified 06/02/17 18:50) loracarbef [LORACARBEF] Allergy (Unknown, Verified 06/02/17 18:50) methylprednisolone [METHYLPREDNISOLONE] Allergy (Unknown, Verified 06/02/17 18:50) penicillin G [PENICILLIN G] Allergy (Unknown, Verified 06/02/17 18:50) Penicillins [PENICILLINS] Allergy (Unknown, Verified 06/02/17 20:58) phenytoin [PHENYTOIN] Allergy (Unknown, Verified 06/02/17 20:58) valproic acid [VALPROIC ACID] Allergy (Unknown, Verified 06/02/17 20:58) zonisamide [ZONISAMIDE] Allergy (Unknown, Verified 06/02/17 20:58) Height: 1.7 m Weight: 69.967 kg Patient Problems: Current Active Problems Sinusitis (Acute) - VTE Risk Labs: VTE Related Lab Results Hgb 13.3 g/dL (12.2-16.2) 01/30/19 15:00 Hct 41.9 % (37.0-47.0) 01/30/19 15:00 Plt Count 220 K/mm3 (142-424) 01/30/19 15:00 BUN 13 mg/dL (7-18) 01/30/19 15:00 Creatinine 0.95 mg/dL (0.55-1.02) 01/30/19 15:00 Estimated Creat Clear 81 mL/min (50-200) 01/30/19 15:00 Was VTE Risk Assessment Performed: Yes VTE Score: 9 VTE Risk Level: Moderate Risk Clinical Trial Participant: No - Prophylaxis VTE Prophylaxis Ordered?: Yes Types of VTE Prophylaxis: TEDS Knee High
[2019-01-31 07:23] LABS: Basophils % 0.6 % (0.1-2.0); Eosinophils # 0.1 K/mm3 (0.0-0.4); Eosinophils % 2.3 % (0.1-12.0); Hematocrit 38.5 % (37.0-47.0); Hemoglobin 12.7 g/dL (12.2-16.2); Lymphocytes # 1.4 K/mm3 (0.7-4.5); Lymphocytes % 25.3 % (10-50); Mean Corpuscular HGB Conc 33.1 g/dL (31.8-35.4); Mean Corpuscular Volume 94.6 fl (81-99); Mean Platelet Volume 10.7 fl (7.4-10.4); Monocytes # 0.4 K/mm3 (0.1-1.0); Monocytes % 7.7 % (1.7-9.3); Neutrophils # 3.6 K/mm3 (1.8-7.8); Neutrophils % 64.1 % (37.0-80.0); Platelet Count 155 K/mm3 (142-424); Red Blood Count 4.07 M/mm3 (4.20-5.40); Red Cell Distribution Width 12.3 % (11.5-17.5); White Blood Count 5.6 K/mm3 (4.8-10.8)
[2019-01-31 08:00] LABS: Calcium 8.2 mg/dL (8.5-10.1)
--- NOTE | 2019-01-31 08:15 | H&P/Discharge Summary ---
General - General Admission date:: 01/30/19 Discharge date: 01/31/19 *Admission Date: 01/30/19 *Chief complaint: fatigue, hypotension *History of present illness: 43-year-old female who initially presented to her PCPs office yesterday due to congestion, earache, fatigue. On assessment was found to have low blood pressure. Was brought to the ER for further assessment management. Patient was found to have labs with slight hypernatremia, ethmoid sinusitis on head CT, but otherwise benign work-up. Blood pressure remained low in the ER, patient admitted for observation due to medical history of seizure disorder and concern for hypotension. On assessment this morning patient states she feels about 75% her baseline. 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 She denies any fevers, diarrhea. Does complain of some upset stomach when she eats. Has been having sinus pressure and discomfort. Appears quite fatigued on interview. Reviewed repeat labs this morning with n ormalization of her hypernatremia and stable vitals. [facility] History I have reviewed the patient's past medical history: Yes Medical History: Reports:: Hyperlipidemia Denies:: Cancer, Diabetes Mellitus Type 1, Diabetes Mellitus Type 2, MRSA *Have you ever received a pneumonia vaccine?: No *Have you received a flu vaccine this season?: No Other Medical History: Reports: Anemia, Arthritis, Sinus Problems Laterality Cases: Bilateral: Tonsillectomy Other Surgeries: Yes: Cholecystectomy, Diagnostic Lap, Hysterectomy-Total Amputation: No Fractures: No - *Social History Educational Level: Completed College Smoking Status: Former smoker # Packs/Day (cigarettes): 1 Smoking End Date: 2007 Alcohol Intake: never *Occupational Status:: employed Housing: house Household Members: family *Travel in the last 8 weeks: None Family Hx:: Anemia, Asthma, Bleeding Disorder, Cancer, Diabetes, Heart Attack, Hyperlipidemia, Hypertension, Kidney Disease, Stroke, Alcoholism, Mental illness Review of Systems - Review of Systems Review of systems:: pertinent systems reviewed and negative unless documented below - *Neurologic Reports headache(s) Exam Vital signs and Labs for Last 24 Hours: Temp Pulse Resp BP Pulse Ox 97.6 F 50 L 16 90/48 L 100 01/31/19 04:00 01/31/19 04:00 01/31/19 04:00 01/31/19 04:00 01/31/19 04:00 Laboratory Results - last 24 hr 01/30/19 15:00: WBC 5.0, RBC 4.40, Hgb 13.3, Hct 41.9, MCV 95.2, MCH 30.2, MCHC 31.7 L, RDW 12.4, Plt Count 220, MPV 8.9, Neut % (Auto) 61.8, Lymph % (Auto) 26.6, [place] % (Auto) 6.8, Eos % (Auto) 3.9, Baso % (Auto) 0.8, Neut # (Auto) 3.1, Lymph # (Auto) 1.3, [place] # (Auto) 0.3, Eos # (Auto) 0.2, Baso # (Auto) 0.0 01/30/19 15:00: Sodium 146 H, Potassium 4.0, Chloride 107, Carbon Dioxide 29, Anion Gap 14.0, BUN 13, Creatinine 0.95, Estimated Creat Clear 81, Estimated GFR 64, Est GFR ( Amer) 78, Glucose 86, Calcium 9.1, Total Bilirubin 0.3, AST 22, ALT 25, Alkaline Phosphatase 61, Total Protein 7.1, Albumin 3.9, Globulin 3.2, Albumin/Globulin Ratio 1.2 01/30/19 16:34: Lactate 1.8 01/31/19 06:50: WBC 5.6, RBC 4.07 L, Hgb 12.7, Hct 38.5, MCV 94.6, MCH 31.3 H, MCHC 33.1, RDW 12.3, Plt Count 155 D, MPV 10.7 H, Neut % (Auto) 64.1, Lymph % (Auto) 25.3, [place] % (Auto) 7.7, Eos % (Auto) 2.3, Baso % (Auto) 0.6, Neut # (Auto) 3.6, Lymph # (Auto) 1.4, [place] # (Auto) 0.4, Eos # (Auto) 0.1, Baso # (Auto) 0.0 01/31/19 07:40: Sodium 141, Potassium 4.0, Chloride 111 H, Carbon Dioxide 22 D, Anion Gap 12.0, BUN 11, Creatinine 0.79, Estimated Creat Clear 101, Estimated GFR 79, Est GFR ( Amer) 96 D, Glucose 113 H D, Calcium 8.2 L I & O for Last 24 hours: Intake & Output 01/28/19 01/29/19 01/30/19 01/31/19 23:59 23:59 23:59 23:59 Intake Total 1538 / 1538 Balance 1538 / 1538 Weight 69.655 kg 69.967 kg - Constitutional no acute distress, chronically ill appearing, cooperative Comments: fatigued - *Routine HEENT Exam Head: Present: normocephalic Eye: Present: EOMI, PERRL ENT: Present: mucous membranes moist, TM's clear bilaterally Comments: Bilateral maxillary sinus tenderness - *Routine Neck Exam Present: supple. Absent: lymphadenopathy - *Routine Respiratory Exam Present: CTA bilaterally - *Routine Cardiovascular Exam Present: RRR - *Routine Abdominal Exam Present: soft, normoactive bowel sounds. Absent: tenderness - *Routine Extremities Exam Absent: cyanosis, clubbing, edema - *Routine Skin Exam Present: warm. Absent: rash - *Routine Neurological Exam Present: alert, oriented X3 speech slow, delayed response to questions. No focal deficits. Globally weak, at her baseline per report. Hospital Course Hospital Course: Admitted for low BP. Given IV fluids for resuscitation and treatment of her mild dehydration due to hypernatremia. Monitored overnight with no acute events. Blood pressure remains stable. Further review of records in the morning showed that her blood pressure is normally on the low end of the normal range. Patient stated she felt 75 to 80% of her baseline. Remained hemodynamically stable, afebrile. Continue to have sinus pressure without fever. Transition from IV to oral antibiotics to complete course for sinusitis. Medically stable for discharge home. Instructed to follow-up with her PCP in the coming days Results Labs on day of discharge: Labs from last 24 hours 01/31/19 01/31/19 01/30/19 07:40 06:50 16:34 WBC 5.6 RBC 4.07 L Hgb 12.7 Hct 38.5 MCV 94.6 MCH 31.3 H MCHC 33.1 RDW 12.3 Plt Count 155 D MPV 10.7 H Neut % (Auto) 64.1 Lymph % (Auto) 25.3 [place] % (Auto) 7.7 Eos % (Auto) 2.3 Baso % (Auto) 0.6 Neut # (Auto) 3.6 Lymph # (Auto) 1.4 [place] # (Auto) 0.4 Eos # (Auto) 0.1 Baso # (Auto) 0.0 Sodium 141 Potassium 4.0 Chloride 111 H Carbon Dioxide 22 D Anion Gap 12.0 BUN 11 Creatinine 0.79 Estimated Creat Clear 101 Estimated GFR 79 Est GFR ( Amer) 96 D Glucose 113 H D Lactate 1.8 Calcium 8.2 L Total Bilirubin AST ALT Alkaline Phosphatase Total Protein Albumin Globulin Albumin/Globulin Ratio 01/30/19 01/30/19 15:00 15:00 WBC 5.0 RBC 4.40 Hgb 13.3 Hct 41.9 MCV 95.2 MCH 30.2 MCHC 31.7 L RDW 12.4 Plt Count 220 MPV 8.9 Neut % (Auto) 61.8 Lymph % (Auto) 26.6 [place] % (Auto) 6.8 Eos % (Auto) 3.9 Baso % (Auto) 0.8 Neut # (Auto) 3.1 Lymph # (Auto) 1.3 [place] # (Auto) 0.3 Eos # (Auto) 0.2 Baso # (Auto) 0.0 Sodium 146 H Potassium 4.0 Chloride 107 Carbon Dioxide 29 Anion Gap 14.0 BUN 13 Creatinine 0.95 Estimated Creat Clear 81 Estimated GFR 64 Est GFR ( Amer) 78 Glucose 86 Lactate Calcium 9.1 Total Bilirubin 0.3 AST 22 ALT 25 Alkaline Phosphatase 61 Total Protein 7.1 Albumin 3.9 Globulin 3.2 Albumin/Globulin Ratio 1.2 DS: Diagnosis - Discharge Diagnosis (1) Hypernatremia Status: Acute (2) Sinusitis Status: Acute (3) Epileptic seizure Status: Chronic (4) Fatigue Status: Acute Discharge Plan - Patient Discharge Instructions ACTIVITY: Continue current activity DIET: continue same diet Patient Instructions: DI for Sinusitis, DI for Hypotension - Follow up Plan Follow up with: Mane Sol [Primary Care Provider] - 02/07/19 9:50 am Disposition: Home, Self-Retirement Medications: Home Medications Medication Instructions Recorded Confirmed Type Albuterol Sulfate [Albuterol HFA 1 - 2 puff IH QID PRN 06/02/17 01/31/19 History Inhaler] Albuterol Sulfate [Albuterol 2.5 mg IH QIDP PRN 06/02/17 01/30/19 History Sulfate 2.5mg/0.5ml Neb] Budesonide/Formoterol Fumarate 1 - 2 puffs IH BID 06/02/17 01/31/19 History [Symbicort 160-4.5 Mcg Inhaler] SUMAtriptan succinate [Imitrex] 50 mg PO NEEDED PRN 06/02/17 01/30/19 History Topiramate 75 mg PO BID 06/02/17 01/30/19 History Brivaracetam [Briviact] 50 mg PO BID 01/30/19 01/30/19 History Brivaracetam [Briviact] 100 mg PO BID 01/30/19 01/30/19 History Propranolol HCl [Inderal 20mg 20 mg PO BID 01/30/19 01/30/19 History tablet] diazePAM [Diastat Acudial] 15 mg RC NEEDED PRN 01/30/19 01/31/19 History Fluticasone Propionate [Flonase 1 - 2 spr NS HS 01/31/19 01/31/19 History 50mcg nasal spray 16gm] levoFLOXacin [Levaquin 500mg 500 mg PO DAILY #5 tab 01/31/19 Rx tab] Prescriptions/Medication Reconciliation: New levoFLOXacin [Levaquin 500mg tab] 500 mg PO DAILY #5 tab Continued SUMAtriptan succinate [Imitrex] 50 mg PO NEEDED PRN PRN Reason: Migraine Headache Albuterol Sulfate [Albuterol Sulfate 2.5mg/0.5ml Neb] 2.5 mg IH QIDP PRN PRN Reason: athsma Albuterol Sulfate [Albuterol HFA Inhaler] 1 - 2 puff IH QID PRN PRN Reason: SHORTNESS OF BREATH/WHEEZING Budesonide/Formoterol Fumarate [Symbicort 160-4.5 Mcg Inhaler] 1 - 2 puffs IH BID diazePAM [Diastat Acudial] 15 mg RC NEEDED PRN PRN Reason: SEIZURES > 15 MIN Brivaracetam [Briviact] 100 mg PO BID Fluticasone Propionate [Flonase 50mcg nasal spray 16gm] 1 - 2 spr NS HS Topiramate 75 mg PO BID Propranolol HCl [Inderal 20mg tablet] 20 mg PO BID Brivaracetam [Briviact] 50 mg PO BID - Problem Reconciliation Problems Reviewed?: Yes
== END 2019-01-31 15:40 | disposition home or self-care (01) ==
LOC: 2ND 14:54 → ER 14:54 → 2ND 20:27
PROVIDERS: ADMIT Family Medicine; ATTEND Internal Medicine Adolescent Medicine
CPT/HCPCS: 36415; 70450; 71020; 71046; 80048; 80053; 83605; 85025; 87040; 94640; 96365; 96367; 96375; 99285; G0378; J1956; J2405

== ENCOUNTER → 2020-08-09 08:56 | Outpatient (CLI) | payer OTHER, SELFPAY | PROVIDERS: PCP Internal Medicine; Visit Provider Internal Medicine | DX: Z01.818 Encounter for other preprocedural examination (principal); Z11.52 Encounter for screening for COVID-19 | CPT/HCPCS: U0003 ==

== ENCOUNTER → 2020-09-30 16:31 | Outpatient (CLI) | payer OTHER, SELFPAY ==
--- NOTE | 2020-09-30 16:36 | XR_ITS ---
PROCEDURE: XR SHOULDER LT MIN 2V CLINICAL INDICATION: LT SHOULDER PAIN COMPARISON: No exams were available for comparison FINDINGS: No fracture or dislocation. No lytic or blastic change. There is normal mineralization. The joint spaces are well-preserved. No significant degenerative/arthritic changes. No erosive changes evident. Other findings:Neurostimulator device is present curled in the left medial apical region of the thorax overlying the T1-T2 and T3 level. Benign-appearing cortical defect noted in the left greater tuberosity region at 6 mm IMPRESSION: Negative left shoulder Dictated by: Kervin Ames MD 09/30/2020 16:54 Kervin Ames MD in [place] 09/30/2020 16:54
== END ==
PROVIDERS: PCP Internal Medicine; Visit Provider Internal Medicine
DX: M25.512 Pain in left shoulder (principal)
CPT/HCPCS: 73030

== ENCOUNTER 2021-01-08 10:42 | Outpatient (RCR) | payer OTHER, SELFPAY | END 2021-01-08 12:00 | disposition home or self-care (01) | LOC: OT 10:42 | PROVIDERS: Visit Provider Orthopaedic Surgery | DX: M75.02 Adhesive capsulitis of left shoulder (principal); G56.02 Carpal tunnel syndrome, left upper limb; R20.2 Paresthesia of skin | CPT/HCPCS: 97763 ==

== ENCOUNTER 2021-01-15 10:45 | Outpatient (RCR) | payer OTHER, SELFPAY ==
--- NOTE | 2021-01-15 13:15 | HMH.OTOPEV ---
OT Inpatient Evaluation Rehab OT Outpatient Eval Start: 01/15/21 12:50 Freq: Status: Active Protocol: Document 01/15/21 12:50 ELINA (Rec: 01/15/21 13:02 ELINA [id number]) Electronically Signed By Cindy Spence OT 01/15/21 12:50 Outpatient Therapy Subjective History Subjective History 45 year old female referred to skilled OP OT services for left frozen shoulder and left CTS. She says she has been having left shoulder pain for the last 5 months or so. She states her symptoms started following placement of a vagus nerve stimulator over the left chest at the beginning of August by Dr Zelaya. Apart from this there is no history of any injury. She localizes the pain to all around the shoulder joint and says the pain is more or less constant. She rates her pain a 7 out of 10 at rest and a 9 out of 10 at its worse. She states any attempted shoulder movements aggravate her pain. She states she has tried NSAIDS, creams, icing, heat, rest, activity modification and recieved cortisone shot on 01/08/21 with no relief. She says the shoulder is very stiff and also feels weak. She states that she had left shoulder surgery in [address] Yates in [place] for a rotator cuff tear. She says she has been doing well with her shoulder until her pain started in August. She reports no problems with the right shoulder. Patient stated she occasionally works in [employer] along with her mother and been having difficulty time due to the pain the in left wrist. Patient is scheduled for NCV at the pain clinic on 01/17/21 for CTS. Chief Complain
== END 2021-01-15 10:50 | disposition home or self-care (01) ==
LOC: OT 10:45
PROVIDERS: PCP Internal Medicine; Visit Provider Orthopaedic Surgery
DX: M75.02 Adhesive capsulitis of left shoulder (principal); G56.02 Carpal tunnel syndrome, left upper limb

== ENCOUNTER 2021-03-25 13:00 | Outpatient (RCR) | payer OTHER, SELFPAY ==
--- NOTE | 2021-02-26 16:06 | HMH.OTOPEV ---
OT Inpatient Evaluation Rehab OT Outpatient Eval Start: 02/26/21 14:50 Freq: Status: Active Protocol: Document 02/26/21 14:50 ELINA (Rec: 02/26/21 15:05 ELINA [id number]) Electronically Signed By Cindy Spence OT 02/26/21 14:50 Outpatient Therapy Subjective History Subjective History Ms. Dahl is a 75 yr old female seen initially in my office today for follow-up from recent Covid hospitalization. She was accompanied by her daughter. Concern however this morning for being hypotensive at home with systolics in the 80s. Family reports she has been doing better since getting home from extended hospitalization for Covid pneumonia. Is on Bactrim for bacterial pneumonia. Takes several medications for blood pressure at home including carvedilol twice daily, nifedipine daily, clonidine 3 times a day, and losartan every morning. Her blood pressures have gradually decreased over the past week with their lowest today in the office. Normal blood pressure for her is systolic less than 120 over less than 65. She has a known history of carotid artery stenosis with total occlusion of the right side. [facility] has been working with her. Patient reported to the office today saying she was feeling more weak and fatigued. Denied any chest pain, worsening shortness of breath (on baseline 2 L nasal cannula ). Febrile this morning at home with temperature of 100.8 . No nausea, vomiting, diarrhea. No swelling in her legs. No katharine confusion Directly admitted from the office due to hypotension and
== END 2021-03-25 13:05 | disposition home or self-care (01) ==
LOC: OT 13:00
PROVIDERS: PCP Internal Medicine; Visit Provider Orthopaedic Surgery
DX: M75.02 Adhesive capsulitis of left shoulder (principal)
CPT/HCPCS: 97014; 97110; 97140; 97165; 97530; G0283

== ENCOUNTER 2022-01-27 12:50 | Emergency (ER) | payer OTHER, SELFPAY ==
[2022-01-27 13:21] VITALS: BP 97/65; PULSE 65; RESP 18; TEMP 36.9; O2SAT 99; BMI 23.4
--- NOTE | 2022-01-27 13:28 | EXP.UTC ---
Discharge Plan Disposition Patient Disposition: Home, Self-Care Condition: Good Prescriptions Prescriptions: New benzonatate [benzonatate] 100 mg capsule 100 mg PO TIDP PRN (Reason: Cough) Qty: 30 0RF ondansetron 4 mg Tablet,Disintegrating 4 mg PO Q8H PRN (Reason: Nausea) Qty: 20 0RF No Action sumatriptan succinate 50 MG tablet 50 mg PO NEEDED PRN (Reason: Migraine Headache) topiramate 25 tablet 75 mg PO BID Label Comments: albuterol sulfate 18 GM HFA aerosol inhaler 1 - 2 puff IH QID PRN (Reason: SHORTNESS OF BREATH/WHEEZING) albuterol sulfate 2.5 MG/0.5 ML solution for nebulization 2.5 mg IH QIDP PRN (Reason: athsma) budesonide-formoterol 10.2 GM HFA aerosol inhaler 1 - 2 puffs IH BID diazepam 1 EACH kit 15 mg RC NEEDED PRN (Reason: SEIZURES > 15 MIN) Rx Instructions: Use as directed for seizures brivaracetam 50 MG tablet 50 mg PO BID brivaracetam 100 MG tablet 100 mg PO BID fluticasone propionate 120 SPR/BOT bottle 1 - 2 spr NS HS Rx Instructions: PATIENT NEEDS A NEW BOTTLE, HER CURRENT ONE IS Referrals Follow up/Referrals: Mane Sol MD [Primary Care Provider] - See instructions Activity Restrictions/Add. Instructions Additional Instructions/Restrictions: Drink plenty of fluids. Take tylenol or ibuprofen for pain or fever. Take the medications as directed. Follow up with your regular doctor. GO TO THE ER FOR ANY WORSENING SYMPTOMS Quarantine until you know the results of your covid-19 test. Notify your school or workplace of your results and follow their instructions regarding return to work/school. Clinical Impressions Clinical Impression: Viral syndrome, Close exposure to COVID-19 virus Instructions Patient Instructions: Coronavirus Disease 2019, Preventing the Spread of Coronavirus Discharge Instructions Discharge ED Provider: Boyd Alford [facility] General Stated complaint: Sore throat, HOLT, Ear pain Time Seen by Provider: 01/27/22 13:28 History of Present Illness Provider Complaint: She states that she started feeling bad 2 days ago. She has had body aches, scratchy sore throat, chills. She was exposed to covid-19 in her home by most of her family having covid last week. Related Data Home Medications Medication Instructions Recorded Confirmed albuterol sulfate 2.5 mg/0.5 mL 2.5 mg IH QIDP PRN athsma 06/02/17 03/25/21 solution for nebulization albuterol sulfate 90 mcg/actuation 1 - 2 puff IH QID PRN SHORTNESS OF 06/02/17 03/25/21 aerosol inhaler BREATH/WHEEZING budesonide-formoterol HFA 160 1 - 2 puffs IH BID Asthma 06/02/17 03/25/21 mcg-4.5 mcg/actuation aerosol inhaler sumatriptan succinate 50 mg tablet 50 mg PO NEEDED PRN Migraine 06/02/17 03/25/21 Headache topiramate 25 mg tablet 75 mg PO BID seizures 06/02/17 03/25/21 brivaracetam 100 mg tablet 100 mg PO BID SEIZURES 01/30/19 03/25/21 brivaracetam 50 mg tablet 50 mg PO BID SEIZURES 01/30/19 03/25/21 diazepam 5 mg-7.5 mg-10 mg rectal 15 mg RC NEEDED PRN SEIZURES > 01/30/19 03/25/21 kit 15 MIN fluticasone propionate 50 1 - 2 spr NS HS ALLERGIES 01/31/19 03/25/21 mcg/actuation nasal spray,suspension Previous Rx's Medication Instructions Recorded benzonatate 100 mg capsule 100 mg PO TIDP PRN Cough #30 caps 01/27/22 ondansetron 4 mg disintegrating 4 mg PO Q8H PRN Nausea #20 tabs 01/27/22 tablet Allergies Allergy/AdvReac Type Severity Reaction Status Date / Time carbamazepine [CARBAMAZEPINE] Allergy Unknown Verified 03/25/21 14:23 diphenhydramine Allergy Unknown Verified 03/25/21 14:23 [DIPHENHYDRAMINE] divalproex sodium Allergy Unknown Verified 03/25/21 14:23 [DIVALPROEX SODIUM] Hydantoins [HYDANTOINS] Allergy Unknown Verified 03/25/21 14:23 isopropyl alcohol Allergy Unknown Verified 03/25/21 14:23 [ISOPROPYL ALCOHOL] lamotrigine [LAMOTRIGINE] Allergy Unkno
[2022-01-27 13:33] LABS: UTC Strep Screen (Rapid) Negative (Negative)
[2022-01-27 14:30] VITALS: BP 97/65; PULSE 65; RESP 18; TEMP 36.9; O2SAT 99
== END 2022-01-27 14:30 | disposition home or self-care (01) ==
PROVIDERS: Emergency Provider Nurse Practitioner Family; PCP Internal Medicine
DX: U07.1 COVID-19 (principal)
CPT/HCPCS: 87880; 99212; C9803; G0463; U0003; U0005

== ENCOUNTER 2022-07-19 16:14 | Emergency (ER) | payer OTHER, SELFPAY ==
[2022-07-19 16:17] VITALS: BP 115/72; PULSE 68; RESP 17; TEMP 36.9; O2SAT 99; BMI 25.2
--- NOTE | 2022-07-19 16:52 | CT_ITS ---
PROCEDURE INFORMATION: Exam: CT Abdomen And Pelvis With Contrast Exam date and time: 07/19/2022 4:14 PM Age: 46 years old Clinical indication: Other: Vaginal bleeding, abdominal pain; Prior surgery; Surgery date: 6+ months; Surgery type: Hysterectomy; Additional info: New vaginal bleeding, severe abd pain TECHNIQUE: Imaging protocol: Computed tomography of the abdomen and pelvis with contrast. Radiation optimization: All CT scans at this facility use at least one of these dose optimization techniques: automated exposure control; mA and/or kV adjustment per patient size (includes targeted exams where dose is matched to clinical indication); or iterative reconstruction. Contrast material: ISOVUE; Contrast volume: 75 ml; Contrast route: IV; REPORTING DATA: Count of CT and Cardiac NM exams in prior 12 months: This patient has received 0 known CTs and 0 known cardiac nuclear medicine studies in the 12 months prior to the current study. COMPARISON: ABDPELW/O CT ABD PELVIS W/O CONTRAST 07/23/2016 9:31 PM FINDINGS: Liver: Hepatomegaly. Gallbladder and bile ducts: Cholecystectomy. Pancreas: Normal. No ductal dilation. Spleen: Multiple calcified splenic granulomata. Adrenal glands: Normal. No mass. Kidneys and ureters: Normal. No hydronephrosis. Stomach and bowel: Unremarkable. No obstruction. No mucosal thickening. Appendix: No evidence of appendicitis. Intraperitoneal space: Unremarkable. No free air. No significant fluid collection. Vasculature: Unremarkable. No abdominal aortic aneurysm. Lymph nodes: Unremarkable. No enlarged lymph nodes. Urinary bladder: Unremarkable as visualized. Reproductive: Hysterectomy. Bones/joints: Unremarkable. No acute fracture. Soft tissues: Unremarkable. IMPRESSION: 1. No acute findings. 2. Hepatomegaly. 3. Minor pelvic free fluid, likely physiologic.
[2022-07-19 16:56] LABS: Chloride 107 mmol/L (98-107); Potassium 3.9 mmoL/L (3.5-5.1); Sodium 142 mmol/L (136-145)
[2022-07-19 16:59] LABS: Alanine Aminotransferase 32 U/L (12-78); Albumin Level 4.7 g/dl (3.5-5.0); Albumin/Globulin Ratio 1.8 (1.1-1.8); Alkaline Phosphatase 69 U/L (38-126); Anion Gap 8.9 mEq/L (5-15); Aspartate Amino Transferase 38 U/L (14-36); Bilirubin,Total 0.6 mg/dl (0.2-1.3); Blood Urea Nitrogen 13 mg/dl (7-17); Calcium 9.2 mg/dl (8.4-10.2); Carbon Dioxide 30 mmol/L (22.0-30.0); Creatinine Clearance Estimated 82 mL/min (50-200); Estimated Glomerular Filt Rate 67 ml/min (>60); GFR (African American) 82 ML/MIN (>60); Globulin 2.6 g/dL (1.3-3.2); Glucose 96 mg/dl (74-100); Lipase 165 U/L (23-300); Total Protein,Serum 7.3 g/dl (6.3-8.2)
[2022-07-19 17:01] LABS: Basophils # 0.1 K/mm3 (0-0.2); Basophils % 1.5 % (0.1-2.0); Eosinophils # 0.2 K/mm3 (0.0-0.4); Eosinophils % 3.6 % (0.1-12.0); Hematocrit 43.5 % (37.0-47.0); Hemoglobin 14.2 g/dL (12.2-16.2); Lymphocytes # 1.4 K/mm3 (0.7-4.5); Lymphocytes % 25.2 % (10-50); Mean Corpuscular HGB Conc 32.6 g/dL (31.8-35.4); Mean Corpuscular Hemoglobin 30.2 pg (27.0-31.2); Mean Corpuscular Volume 92.8 fl (81-99); Mean Platelet Volume 9.8 fl (7.4-10.4); Monocytes # 0.3 K/mm3 (0.1-1.0); Monocytes % 5.4 % (1.7-9.3); Neutrophils # 3.6 K/mm3 (1.8-7.8); Neutrophils % 64.3 % (37.0-80.0); Platelet Count 209 K/mm3 (142-424); Red Blood Count 4.69 M/mm3 (4.20-5.40); Red Cell Distribution Width 12.4 % (11.5-17.5); White Blood Count 5.6 K/mm3 (4.8-10.8)
--- NOTE | 2022-07-19 17:19 | PC.NURSE ---
pt return from CT, pt in restroom attempting to provide urine specimen
--- NOTE | 2022-07-19 17:25 | HMH.EDGENADL ---
Discharge Plan Disposition Patient Disposition: Home, Self-Care Condition: Good Prescriptions Prescriptions: New estradiol [Estrace] 0.01 % (0.1 mg/gram) cream 1 appful vaginal DAILY Qty: 42.5 0RF Rx Instructions: for 14 days No Action albuterol sulfate [Ventolin HFA] 90 mcg/actuation Hfa Aerosol Inhaler 2 puff INHALATION Q6H PRN (Reason: Breathing) fluticasone propionate 50 mcg/actuation [place],Suspension 2 spray INTRANASAL DAILY Rx Instructions: administer into each nostril topiramate 50 mg tablet 150 mg PO DAILY budesonide-formoterol [Symbicort] 160-4.5 mcg/actuation Hfa Aerosol Inhaler 2 puff INHALATION BID Briviact 50 mg tablet 50 mg PO BID Briviact 100 mg tablet 100 mg PO BID Ubrelvy 50 mg Tablet 50 mg PO NEEDED PRN (Reason: Migraine onset) Referrals Follow up/Referrals: Mane Sol MD [Primary Care Provider] - See instructions Kaykay Galicia DO [Staff Physician] - See instructions (vaginal atrophy and needs follow up for bleeding) Activity Restrictions/Add. Instructions Additional Instructions/Restrictions: Follow-up with gynecology, information is provided. If you have large-volume bleeding, lightheadedness, chest pain, or any other concerns, return to the ER or your primary care provider for further evaluation. Use vaginal estrogen cream as prescribed Clinical Impressions Clinical Impression: Vaginal bleeding, Vaginal atrophy Discharge ED Provider: Efraín Stringer General Adult HPI General Chief complaint: Vaginal Bleeding Stated complaint: Passing blood unsure which area Time Seen by Provider: 07/19/22 16:26 Mode of Arrival: Ambulatory Source of Information: Patient Limitations: No Limitations Description of Symptoms (Recalled from ER Triage Doc. by RN): 46 F presents with complaints of vaginal bleeding. She reports history of a hysterectomy. Patient states she woke up around 0530 this morning and noticed she had bled all over her legs and night gown. Patient denies painful bleeding, but states she felt funny in her stomach all over. 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 History of Present Illness HPI narrative: This is a 46-year-old female with history of unilateral oophorectomy, reported history of hysterectomy, seizure disorder presenting with vaginal bleeding. Patient states that she woke up today, 3/12 with large blood clots between her legs. On inspection, it appears to be vaginal in nature. Patient states that throughout the day she has passed 2 or 3 clots that are about the size of a dime. She has had associated abdominal pain that radiates to her bilateral flanks and is 8 out of 10 in severity. Stabbing/shooting/sharp in nature. She has not noticed anything that makes it better, has not tried any medical interventions. Last menstrual period was years prior and she has not had any vaginal bleeding since that time. Denies blood thinner use, nausea or vomiting, fevers or chills, urinary symptoms, diarrhea, hematochezia, or any other concerns. Related Data Home Medications Medication Instructions Recorded Confirmed albuterol sulfate 90 mcg/actuation 2 puff inhalation Q6H PRN Breathing 07/19/22 07/19/22 aerosol inhaler (Ventolin HFA) brivaracetam 100 mg tablet 100 mg PO BID Seizures 07/19/22 07/19/22 (Briviact) brivaracetam 50 mg tablet 50 mg PO BID Seizures 07/19/22 07/19/22 (Briviact) budesonide-formoterol HFA 160 2 puff inhalation BID Breathing 07/19/22 07/19/22 mcg-4.5 mcg/actuation aerosol problems inhaler (Symbicort) fluticasone propionate 50 2 spray intranasal DAILY Allergies 07/19/22 07/19/22 mcg/actuation nasal spray,suspension topiramate 50 mg tablet 150 mg PO DAILY Seizures 07/19/22 07/19/22 ubrogepant 50 mg tablet (Ubrelvy) 50 mg PO NEEDED PRN Migraine 07/19/22 07/19/22 onset Previous Rx's Medication Instructions Recorded estradiol 0.01% (0.1 mg/gram)
[2022-07-19 17:29] LABS: Microscopic, Urine URINE MICROSCOPIC (MICROSCOPIC)
[2022-07-19 17:30] LABS: Appearance,Urine CLEAR (Clear); Bilirubin,Urine Negative (Negative); Blood, Urine 2+ (Negative); Color,Urine YELLOW (Yellow); Glucose,Urine (UA) Negative (Negative); Ketones,Urine Negative (Negative); Leukocyte Esterase,Urine Negative (Negative); Nitrate,Urine Negative (Negative); PH,Urine 6.5 (5.0-8.5); Protein,Urine Negative (Negative); Urobilinogen,Urine 0.2 EU/dl (0.2)
[2022-07-19 17:41] LABS: Urine Pregnancy, HCG Qual. Negative (Negative)
[2022-07-19 17:42] LABS: Amorphous Sediment,Urine Trace /lpf; Bacteria,Urine Trace /lpf; Squamous Epithelial Cell,Urine Occasional #/hpf (0-5); WBC,Urine Occasional #/hpf (0-3)
[2022-07-19 19:03] VITALS: BP 119/69; PULSE 60; RESP 17; TEMP 36.7; O2SAT 100
== END 2022-07-19 19:05 | disposition home or self-care (01) ==
PROVIDERS: Emergency Provider Emergency Medicine; PCP Internal Medicine
DX: N93.9 Abnormal uterine and vaginal bleeding, unspecified (principal); N90.5 Atrophy of vulva; Z90.710 Acquired absence of both cervix and uterus; Z87.891 Personal history of nicotine dependence
CPT/HCPCS: 74177; 80053; 81001; 81025; 83690; 85025; 96361; 96374; 99284; 99285; Q9967

== ENCOUNTER → 2023-03-24 15:10 | Outpatient (CLI) | payer OTHER, SELFPAY ==
--- NOTE | 2023-03-24 15:15 | XR_ITS ---
FINAL REPORT CLINICAL HISTORY: COUGH,soa FINDINGS: TWO-VIEW CHEST The heart size is normal. The mediastinum is normal. The lungs are hyperinflated. There is no pneumothorax. There is a stimulator device in the left upper anterior chest wall. IMPRESSION: No acute cardiopulmonary process. Reviewed, Interpreted and Dictated by Onel Dixon MD Transcribed by [facility]
== END ==
PROVIDERS: PCP Internal Medicine; Visit Provider Internal Medicine
DX: R05.9 Cough, unspecified (principal); J45.901 Unspecified asthma with (acute) exacerbation; Z87.891 Personal history of nicotine dependence
CPT/HCPCS: 71046

== ENCOUNTER 2023-10-13 18:13 | Emergency (ER) | payer OTHER, SELFPAY ==
--- NOTE | 2023-10-13 18:12 | ECG_ITS ---
APPROVED REPORT Exam: Resting ECG HR:65 bpm ECG Measurements Heart Rate 65 AXES AR 328 P 113 QRSd 90 QRS 91 QT 391 T 68 QTc 402 Conclusion Sinus rhythm BORDERLINE RIGHT AXIS DEVIATION [QRS AXIS > 90] Electronically signed by : ADRIAN MORENO, 10/13/2023 21:41:16
[2023-10-13 18:13] VITALS: BP 103/63; PULSE 72; RESP 20; TEMP 36.7; O2SAT 97; BMI 23.3
--- NOTE | 2023-10-13 18:22 | PC.NURSE ---
DR MORENO AT BEDSIDE
--- NOTE | 2023-10-13 18:28 | XR_ITS ---
PROCEDURE INFORMATION: Exam: XR Chest Exam date and time: 10/13/2023 6:27 PM Age: 48 years old Clinical indication: Pain; Chest pressure; Additional info: Cp TECHNIQUE: Imaging protocol: Radiologic exam of the chest. Views: 2 views. COMPARISON: CR XR CHEST 2V 03/24/2023 3:20 PM FINDINGS: Tubes, catheters and devices: Left chest wall neurostimulator device. Lungs: No consolidation. Chronic blunting of the left lateral costophrenic angle. Pleural spaces: No pleural effusion. No pneumothorax. Heart/Mediastinum: No cardiomegaly. Stable calcified left suprahilar lymph nodes. Bones/joints: No acute findings. IMPRESSION: No acute pulmonary findings.
--- NOTE | 2023-10-13 18:31 | ED_ITS ---
Discharge Plan Disposition Patient Disposition: Home, Self-Care Chief Complaint: Chest Pain Prescriptions Prescriptions: No Action albuterol sulfate [Ventolin HFA] 90 mcg/actuation Hfa Aerosol Inhaler 2 puff INHALATION Q6H PRN (Reason: Breathing) fluticasone propionate 50 mcg/actuation [place],Suspension 2 spray INTRANASAL DAILY Rx Instructions: administer into each nostril topiramate 50 mg tablet 150 mg PO DAILY budesonide-formoterol [Symbicort] 160-4.5 mcg/actuation Hfa Aerosol Inhaler 2 puff INHALATION BID Briviact 50 mg tablet 50 mg PO BID Briviact 100 mg tablet 100 mg PO BID Ubrelvy 50 mg Tablet 50 mg PO NEEDED PRN (Reason: Migraine onset) estradiol [Estrace] 0.01 % (0.1 mg/gram) cream 1 appful vaginal DAILY Qty: 42.5 0RF Rx Instructions: for 14 days Referrals Follow up/Referrals: Mane Sol MD [Primary Care Provider] - See instructions Howie Izquierdo MD [Staff Physician] - See instructions Activity Restrictions/Add. Instructions Additional Instructions/Restrictions: At this time is felt you are safe to be discharged home. If new or worsening symptoms please do not hesitate to return the emergency department. Please wear your compression stockings as discussed and please call and schedule appoint with cardiology soon as you are able Clinical Impressions Clinical Impression: Leg swelling, Chest pain Discharge ED Provider: Tyrone Pandya [facility] General Chief Complaint: Chest Pain Stated Complaint: chest pain Time Seen by Provider: 10/13/23 18:13 Mode of Arrival: Wheelchair Limitations: No Limitations Description of Symptoms (Recalled from ER Triage Doc. by RN): PT REPORTS BILATERAL LEG EDEMA FOR 2 DAYS, CHEST PRESSURE AND SHORTNESS OF BREATH. REPORTS BILATERAL LEG PAIN, ARM PAIN AND BACK PAIN. History of Present Illness HPI narrative: Patient is a 48-year-old female past medical history of seizure disorder status post VNS placement, asthma who presents emergency department for evaluation of lower extremity swelling. Patient states that she has had intermittent lower extremity swelling before however this is progressed further than normal. Onset was acute, over the last 48 hours, symmetric. She has KATYA hose that she wears intermittently however has not worn them as of late. No cough. She has bilateral shoulder pain which she states is consistent with her baseline, she does have chest pain that is worse with exertion. No significant cough, no vomiting or other acute complaints at this time. Denies IV drug use or smoking. Related Data Home Medications Medication Instructions Recorded Confirmed albuterol sulfate 90 mcg/actuation 2 puff inhalation Q6H PRN Breathing 07/19/22 08/07/22 aerosol inhaler (Ventolin HFA) brivaracetam 100 mg tablet 100 mg PO BID Seizures 07/19/22 08/07/22 (Briviact) brivaracetam 50 mg tablet 50 mg PO BID Seizures 07/19/22 08/07/22 (Briviact) budesonide-formoterol HFA 160 2 puff inhalation BID Breathing 07/19/22 08/07/22 mcg-4.5 mcg/actuation aerosol problems inhaler (Symbicort) fluticasone propionate 50 2 spray intranasal DAILY Allergies 07/19/22 08/07/22 mcg/actuation nasal spray,suspension topiramate 50 mg tablet 150 mg PO DAILY Seizures 07/19/22 08/07/22 ubrogepant 50 mg tablet (Ubrelvy) 50 mg PO NEEDED PRN Migraine 07/19/22 08/07/22 onset Previous Rx's Medication Instructions Recorded estradiol 0.01% (0.1 mg/gram) 1 appful vaginal DAILY #42.5 grams 07/19/22 vaginal cream (Estrace) Allergies Allergy/AdvReac Type Severity Reaction Status Date / Time carbamazepine [CARBAMAZEPINE] Allergy Unknown Verified 08/07/22 10:26 diphenhydramine Allergy Unknown Verified 08/07/22 10:26 [DIPHENHYDRAMINE] divalproex sodium Allergy Unknown Verified 08/07/22 10:26 [DIVALPROEX SODIUM] Hydantoins [HYDANTOINS] Allergy Unknown Verified 08/07/22 10:26 isopropyl alcohol Allergy Unknown Verified 08/07/22 10:26 [ISOPROPYL ALCOHOL] lamotrigine [LAMOTRIGINE] Allergy Unknown Verified 08/07/22 10:26 levetiracetam [LEVETIRACETAM] Allergy Unknown Verified 08/07/22 10:26 loracarbef [LORACARBEF] Allergy Unknown Verified 08/07/22 10:26 methylprednisolone Allergy Unknown Verified 08/07/22 10:26 [METHYLPREDNISOLONE] penicillin G [PENICILLIN G] Allergy Unknown Verified 08/07/22 10:26 Penicillins [PENICILLINS] Allergy Unknown Verified 08/07/22 10:26 phenytoin [PHENYTOIN] Allergy Unknown Verified 08/07/22 10:26 valproic acid [VALPROIC ACID] Allergy Unknown Verified 08/07/22 10:26 zonisamide [ZONISAMIDE] Allergy Unknown Verified 08/07/22 10:26 latex Allergy Verified 08/07/22 10:26 powdered gloves Allergy Uncoded 08/07/22 10:26 PFSH PFS Disclaimer: The information contained in this section may have been updated after the patient was seen, as this information can be updated by other users. Medical History (Updated 10/13/23 @ 21:03 by Tyrone Pandya MD) Vaginal atrophy Hypernatremia Epileptic seizure Surgical History (Updated 08/07/22 @ 10:40 by BERNIE Carvahlo) Status post VNS (vagus nerve stimulator) placement History of cholecystectomy History of surgery on lower extremity History of partial hysterectomy Family History (Updated 08/07/22 @ 10:43 by BERNIE Carvalho) Other Anemia Kidney disease Seizures Stroke Social History Smoking Status: Former smoker second hand exposure: No alcohol intake: never current occupational status: employed Travel in the last 8 weeks: None household members: family housing: house current occupation: [employer] current occupational exposures/hazards: No caffeine: Yes ROS Obtained: Yes Systems reviewed as appropriate & no additional complaints except as documented Physical Exam General General appearance: alert and in no apparent distress Head Head exam: atraumatic and normocephalic Eye Eye exam: Present PERRL ENT ENT exam: Present mucous membranes moist Neck Neck exam: Present normal inspection Chest Chest inspection: Present normal inspection and symmetric chest wall rise Respiratory Respiratory exam: Present normal lung sounds bilaterally; Absent respiratory distress Cardiovascular Cardiovascular exam: Present regular rate and normal rhythm Abdominal Exam Abdominal exam: Present soft; Absent tenderness Extremities Exam Extremities exam: Present other (Symmetric 2+ edema bilateral lower extremities pretibial down. No discoloration of the extremities. No asymmetric swelling.) Neurological Exam Neurological exam: Present alert and CN II-XII intact; Absent motor sensory deficit Psychiatric Psychiatric exam: Present normal affect Skin Skin exam: Present warm and dry HEART Score HEART Score HEART Score assessment performed?: Yes History (anamnesis): Slightly suspicious ECG: Non-specific disturbance Age: 45-65 years Risk factors: 1-2 risk factors Troponin: </= normal limit HEART Score: 3 Critical Care Critical Care Time Critical Care Time: No Medical Decision Making [place] Inquiry Pt receiving controlled substance: No Vital Signs Vital Signs: 10/13/23 18:13 10/13/23 19:00 10/13/23 19:30 Temperature 98.0 F Temperature Source Oral Pulse Rate 65 71 Pulse Rate [Apical] 72 Respiratory Rate 20 22 13 Blood Pressure 110/70 107/63 L Blood Pressure [Right Arm] 103/63 L Blood Pressure Mean 79 77 Blood Pressure Mean [Right Arm] 76 Blood Pressure Source [Right Arm] Automatic Cuff Blood Pressure Position [Right Arm] Sitting 02 Sat by Pulse Oximetry 97 100 100 Oxygen Delivery Method Room Air Lab Data Labs: Lab Results 10/13/23 18:24: WBC 4.3 L, RBC 4.14 L, Hgb 13.0, Hct 40.8, MCV 98.6, MCH 31.5 H, MCHC 32.0, RDW 13.0, Plt Count 189, MPV 9.4, Neut % (Auto) 54.6, Lymph % (Auto) 32.7, [place]verick % (Auto) 7.4, Eos % (Auto) 4.1, Baso % (Auto) 1.1, Neut # (Auto) 2.3, Lymph # (Auto) 1.4, [place]ick # (Auto) 0.3, Eos # (Auto) 0.2, Baso # (Auto) 0.1, D- Dimer 0.30, Sodium 142, Potassium 4.0, Chloride 106, Carbon Dioxide 29, Anion Gap 11.0, BUN 21 H, Creatinine 0.80, Estimated Creat Clear 86, Estimated GFR 77, Est GFR ( Amer) 93, Glucose 86, Calcium 9.4, Total Bilirubin 0.3, AST 45 H, ALT 44, Alkaline Phosphatase 74, Total Creatine Kinase 223 H, Troponin I < 0.01, NT-Pro-B Natriuret Pep 306 H, Total Protein 6.6, Albumin 3.9, Globulin 2.7, Albumin/Globulin Ratio 1.4, TSH 1.55, Free T4 0.94 10/13/23 20:25: Troponin I < 0.01, Urine Color Yellow, Urine Appearance Clear, Urine pH 7.0, Ur Specific [place] 1.015, Urine Protein Negative, Urine Glucose (UA) Negative, Urine Ketones Negative, Urine Blood Negative, Urine Nitrate Negative, Urine Bilirubin Negative, Urine Urobilinogen 0.2, Ur Leukocyte Esterase Negative, Urine WBC Occasional, Amorphous Sediment 1+, Urine Bacteria Trace 10/13/23 18:24 10/13/23 18:24 Response Orders (Tests/Meds): ED MEDICATIONS Discontinued Medications Generic Name Dose Route Start Last Admin Trade Name Freq PRN Reason Stop Dose Admin Acetaminophen 1,000 mg 10/13/23 18:28 10/13/23 18:48 Acetaminophen 1,000mg/100ml Vial IV 10/13/23 18:29 1,000 mg ONCE ONE Administration ORDERS Category Date Time Status CXR 2 view (NOT portable) [XR chest 2V] Stat Exams 10/13/23 18:28 Completed POCUS Point of Care (ER Only) Stat Exams 10/13/23 18:29 Completed BNP [NT Pro Brain Natriuretic Pep.] Stat Lab 10/13/23 18:24 Completed CBC w/Auto Diff [Complete Blood Count Auto Diff] Stat Lab 10/13/23 18:24 Completed CK [Creatine Kinase] Stat Lab 10/13/23 18:24 Completed CMP [Comprehensive Metabolic Panel] Stat Lab 10/13/23 18:24 Completed D-Dimer Stat Lab 10/13/23 18:24 Completed Free T4 (Free Thyroxine) Stat Lab 10/13/23 18:24 Completed TSH [Thyroid Stimulating Hormone] Stat Lab 10/13/23 18:24 Completed Trop I [Troponin I] Stat Lab 10/13/23 18:24 Completed Troponin I Q3H Lab 10/13/23 20:25 Completed Troponin I Q3H Lab 10/14/23 00:30 Ordered UA [Urinalysis and Microscopic] Stat Lab 10/13/23 20:25 Completed ECG Data Tracing #1: ECG Narrative: Independently interpreted by me, rate 65, rhythm is regular, no ST elevation in anatomical contiguous leads, QTc 402 MDM Narrative Medical Decision Narrative: In summary patient is a 48-year-old female past medical history described above who presents emergency department for evaluation of chest pain and lower extremity swelling. Patient is hemodynamically stable nontoxic-appearing upon arrival, afebrile. Differential diagnosis includes CHF, kidney failure, liver failure, ACS, among others. Given symmetric bilateral lower extremity swelling with no discoloration no concern for DVT. Workup will be conducted with hematologic labs, two-view chest x-ray, urinalysis. Initial inventions include IV Tylenol. Initial workup reviewed by me, hematologic labs are largely nonactionable, elevated NT proBNP, slightly elevated CK that does not meet definition for rhabdomyolysis and patient has no evidence of elevated creatinine, serial troponins undetectably low. Low risk aortic dissection calculator. Urinalysis interpreted by me and not consistent with infection. 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 Regardless patient is appropriate for outpatient management at this time will be referred to cardiology. Patient was instructed to wear her compression stockings at home. Indication: Swelling Identified cardiac views: Cardiac parasternal long axis, parasternal for axis, incomplete four-chamber apical view Findings: Cardiac activity present, gross wall motion normal, no pericardial effusion, grossly normal ejection fraction Impression: -From above Images were to permanent archive The study was technically adequate CPT: 58613 This study was performed by me, and I personally interpreted all images/videos. Based on my clinical judgement, these images were adequate and did not necessitate further imaging.
--- NOTE | 2023-10-13 18:35 | PC.NURSE ---
PT TO XR
[2023-10-13 18:37] LABS: Basophils # 0.1 K/mm3 (0-0.2); Basophils % 1.1 % (0.1-2.0); Eosinophils # 0.2 K/mm3 (0.0-0.4); Eosinophils % 4.1 % (0.1-12.0); Hematocrit 40.8 % (37.0-47.0); Lymphocytes # 1.4 K/mm3 (0.7-4.5); Lymphocytes % 32.7 % (10-50); Mean Corpuscular Hemoglobin 31.5 pg (27.0-31.2); Mean Corpuscular Volume 98.6 fl (81-99); Mean Platelet Volume 9.4 fl (7.4-10.4); Monocytes # 0.3 K/mm3 (0.1-1.0); Monocytes % 7.4 % (1.7-9.3); Neutrophils # 2.3 K/mm3 (1.8-7.8); Neutrophils % 54.6 % (37.0-80.0); Platelet Count 189 K/mm3 (142-424); Red Blood Count 4.14 M/mm3 (4.20-5.40); White Blood Count 4.3 K/mm3 (4.8-10.8)
--- NOTE | 2023-10-13 18:40 | PC.NURSE ---
PT RETURNED FROM XR
[2023-10-13 18:42] LABS: Alanine Aminotransferase 44 U/L (12-78); Albumin Level 3.9 g/dl (3.5-5.0); Albumin/Globulin Ratio 1.4 (1.1-1.8); Alkaline Phosphatase 74 U/L (38-126); Aspartate Amino Transferase 45 U/L (14-36); Bilirubin,Total 0.3 mg/dl (0.2-1.3); Blood Urea Nitrogen 21 mg/dl (7-17); Calcium 9.4 mg/dl (8.4-10.2); Carbon Dioxide 29 mmol/L (22.0-30.0); Chloride 106 mmol/L (98-107); Creatine Kinase 223 U/L (30-135); Creatinine Clearance Estimated 86 mL/min (50-200); Estimated Glomerular Filt Rate 77 ml/min (>60); GFR (African American) 93 ML/MIN (>60); Globulin 2.7 g/dL (1.3-3.2); Glucose 86 mg/dl (74-100); Sodium 142 mmol/L (136-145); Total Protein,Serum 6.6 g/dl (6.3-8.2)
[2023-10-13] MEDS: ACETAMINOPHEN 1,000MG/100ML VIAL 1000 MG IV (18:48)
[2023-10-13 18:55] LABS: NT Pro Brain Natriuretic Pep. 306 pg/mL (0-125)
[2023-10-13 19:00] VITALS: BP 110/70; PULSE 65; RESP 22; O2SAT 100
[2023-10-13 19:06] LABS: Troponin I < 0.01 ng/ml (0.00-0.034)
[2023-10-13 19:14] LABS: Thyroid Stimulating Hormone 1.55 uIU/mL (0.465-4.68)
[2023-10-13 19:19] LABS: Free T4 (Free Thyroxine) 0.94 ng/dl (0.78-2.19)
[2023-10-13 19:30] VITALS: BP 107/63; PULSE 71; RESP 13; O2SAT 100
[2023-10-13 20:37] LABS: Microscopic, Urine URINE MICROSCOPIC (MICROSCOPIC)
[2023-10-13 20:41] LABS: Appearance,Urine CLEAR (Clear); Bilirubin,Urine Negative (Negative); Blood, Urine Negative (Negative); Color,Urine YELLOW (Yellow); Glucose,Urine (UA) Negative (Negative); Ketones,Urine Negative (Negative); Leukocyte Esterase,Urine Negative (Negative); Nitrate,Urine Negative (Negative); Protein,Urine Negative (Negative); Specific Gravity, Urine 1.015 (1.005-1.030); Urobilinogen,Urine 0.2 EU/dl (0.2)
[2023-10-13 20:51] LABS: Amorphous Sediment,Urine 1+ /lpf; Bacteria,Urine Trace /lpf; Troponin I < 0.01 ng/ml (0.00-0.034); WBC,Urine Occasional #/hpf (0-3)
[2023-10-13 21:15] VITALS: BP 102/62; PULSE 68; RESP 16; TEMP 36.6; O2SAT 97
== END 2023-10-13 21:16 | disposition home or self-care (01) ==
PROVIDERS: Emergency Provider Emergency Medicine; PCP Internal Medicine
DX: R07.9 Chest pain, unspecified (principal); R22.43 Localized swelling, mass and lump, lower limb, bilateral; G40.909 Epilepsy, unspecified, not intractable, without status epilepticus; Z96.82 Presence of neurostimulator; Z87.891 Personal history of nicotine dependence
CPT/HCPCS: 71046; 80053; 81001; 82550; 83880; 84439; 84443; 84484; 85025; 85378; 93005; 96374; 99285; J0131

== ENCOUNTER 2023-10-28 07:55 | Outpatient (CLI) | payer OTHER, SELFPAY ==
--- NOTE | 2023-10-28 | CA_ITS ---
APPROVED REPORT Exam: Pharmacologic Technologist: Kelly Mcarthur, Ht: 5 ft 5 in Wt: 150 lbs BSA: 1.75 m2 HR: 58 bpm BP: 102/64 mmHg Rhythm: SINUS BRADYCARDIA, RIGHTWARD AXIS, ST ABNS INFERIORLY AND LATERALLY Medical History Medications: Flonase,,,,, TopIRAMATE,,,,, SyMBICORT,,,,, Albuterol,,,,, UBrogepant,,,,, BRIvaracetam,,,,, Cardiac Risk Factors: FHX of CAD Stress Test Details Test: LEXISCAN HR Resting HR: 57 bpm Max Heart Rate (APMHR): 172 bpm Max HR Achieved: 98 bpm Target HR (85% APMHR): 146 bpm % of APMHR: 57 Recovery HR: 84 bpm BP Resting BP: 102/64 mmHg Max BP: 119/73 mmHg Recovery BP: 108.0/66.0 mmHg ECG Resting ECG: SINUS BRADYCARDIA, RIGHTWARD AXIS, ST ABNS INFERIORLY AND LATERALLY Stress ECG: NO SIGNIFICANT ST CHANGES Arrhythmia: PVCS Clinical Exercise duration: 04:01 min Highest Stage Achieved: Exercise capacity: 1.0 METs Stress ECG Conclusion SWITCHED FROM EXERCISE DUE TO UNSTEADY, VERY SLOW GAIT PT HAD SOA, CHEST PRESSURE, DIZZINESS, AND MILD STOMACH DISCOMFORT ECTOPY: RARE PVC ST CHANGES: NONE CONCLUSION: NO SIGNIFICANT ST CHANGES. UNREMARKABLE LEXISCAN STRESS MYOVIEW IMAGES REPORTED SEPARATELY Test Summary REST 03:18 . . 57 . 102/ 64 . . Stage 1 01:00 . . 93 . . . . Stage 2 01:00 . . 94 . 119/ 73 . . Stage 3 01:00 . . 93 . 113/ 73 . . Stage 4 01:00 . . 92 . 115/ 67 . . Stage 4 01:01 . . 93 . 115/ 67 . Stop exercise at 04:01 RECOVERY 01:00 . . 88 . 108/ 68 . . RECOVERY 02:00 . . 82 . 108/ 68 . . RECOVERY 03:00 . . 81 . 108/ 66 . . RECOVERY 04:00 . . 81 . 108/ 66 . . RECOVERY 05:00 . . 79 . 108/ 66 . . RECOVERY 06:00 . . 74 . 108/ 66 . . RECOVERY 06:33 . . 81 . 108/ 66 . . Electronically signed by : Princess Solorzano MD 10/30/2023 23:34:44
--- NOTE | 2023-10-28 07:56 | NM_ITS ---
APPROVED REPORT Exam: Nuclear Stress Test Indication: chest pain..soa..fatigue Patient Location: Outpatient Stress Tech: Kelly Mcarthur SC Tech:Maryann Ty ROLY RT(R)(N) Ht: 5 ft 5 in Wt: 150 lbs Bra Size: 36a HR: 57 bpm BP: 102/64 mmHg BSA: 1.75 m2 Rhythm: NSR TID: 1.17 BMI: 24.9 History: chest pain..soa..fatigue Procedure: Patient received 0.4 mg of intravenous Lexiscan, resting heart rate 57 bpm, resting blood pressure 102/64 mmHg, with Lexiscan maximum heart rate achieved was 98 bpm which is 85 % of the maximum predicted heart rate and blood pressure was 119/73 mmHg. With Lexiscan, patient denied any complaint of chest pain. The patient was not able to lay on her abdomen for prone images. Cardiac Stress and Resting SPECT Images: Cardiac Stress and Resting SPECT images were obtained using technetium 99m Myoview 31.8 mCi stress and 10.40 mCi at rest. Technically difficult images due to significant soft tissue overlap with the cardiac borders. The patient was not able to lie on her abdomen. Therefore, prone stress imaging could not be performed. This may affect the diagnostic interpretation of the study findings. Resting and stress imaging in supine positions demonstrate no definite evidence of fixed or reversible perfusion defects. Gated imaging demonstrates mild reduction global LV systolic function. LVEF is calculated at 46%. The LVEF may be inaccurate in the setting of PVCs. Conclusion: Technically difficult study due to significant soft tissue overlap and no available prone images. No definite evidence of fixed or reversible perfusion defects. Gated imaging demonstrates mild reduction global LV systolic function. LVEF is calculated at 46%. The LVEF may be inaccurate in the setting of PVCs. Correlation of LVEF with recent or new TTE is recommended. Electronically signed by : Princess Solorzano MD 10/30/2023 23:37:55
--- NOTE | 2023-10-28 08:25 | CA_ITS ---
FINAL REPORT CLINICAL HISTORY: bLE edema, hx DVT, ex smoker, CP, epilepsy. FINDINGS: Multiple transverse and longitudinal scans were performed of the femoral popliteal deep venous system, with augmentation and compression maneuvers. Normal phasic flow was noted in the visualized deep venous system. No intraluminal increased echogenicity is noted to suggest thrombus. There is normal compression and augmentation of the venous structures. No abnormal venous collaterals are seen. IMPRESSION: No evidence of deep venous thrombosis of the bilateral lower extremities. Reviewed, Interpreted and Dictated by Le Mendenhall MD Transcribed by [place] Authenticated and [facility]
--- NOTE | 2023-10-28 08:25 | CA_ITS ---
APPROVED REPORT EXAM: Comprehensive 2D, Doppler, and color-flow Echocardiogram Shop Foreman: Isamar Pryor RT(R) Ht: 5 ft 5 in Wt: 150lbs BSA: 1.75 BP: 99/51 mmHg Indications: CP, ex smoker, edema, abn EKG, hx DVT, epilepsy, AMS Echo Enhancing Agent Comments: Limited parasternal windows 2D Dimensions LVEF (Bradley's) 57.50 % F: 54 - 74 LV Volume 95.60 mL F: 46 - 106 LV Volume Index 54.6 mL/m2 F: 29 - 61 EF AP4 56.90 % EF AP2 58.9 % EF BP 57.5 % GL Strain -19.6 % M-Mode Dimensions RVDd 2.31 cm (0.9-2.6) LA Diam 2.65 cm (1.9-4.0) LVDd 3.59 cm (3.5-5.7) LVDs 2.72 cm (3.5-5.7) IVSd 0.59 cm (0.6-1.1) PWd 0.81 cm (0.6-1.1) EF (Teich) 49.20% FS 24.20% EDV (Teich) 54.10 mL TAPSE 2.48 (<1.7) ESV (Teich) 27.50 mL LV Diastology E Decel Time 190 (160-240 msec) E/A Ratio 1.94 Mitral Valve MV A Velocity 50.0 (40-130 cm/s) E/A Ratio 1.94 Tricuspid Valve TR P. Velocity 248.00 cm/s RAP Estimate 10.00 mmHg RVSP 34.60 mmHg Left Ventricle The left ventricle is normal size. The left ventricular systolic function is normal. The left ventricular ejection fraction is within the normal range. There is increased LV wall thickness. There is normal LV segmental wall motion. The left ventricular diastolic function is normal. LVEF is 55%. Right Ventricle Right ventricle is mildly dilated. The right ventricular systolic function is normal. Atria The left atrium size is normal. The right atrium size is normal. There is no Doppler evidence of interatrial shunt. Aortic Valve The aortic valve opens well. There is no aortic valvular stenosis. Trace aortic regurgitation is present. Mitral Valve The mitral valve is normal in structure. No evidence of mitral valve stenosis. Mild mitral regurgitation. Tricuspid Valve The tricuspid valve leaflets are thin and pliable. Mild tricuspid regurgitation. RVSP is 25-30 mmHg. Pulmonic Valve The pulmonary valve is normal in structure. Trace pulmonic regurgitation. Great Vessels The aortic root is normal in size. The ascending aorta is not well-visualized. IVC is normal in size and collapses >50% with inspiration. Pericardium There is no pericardial effusion. Other Information Study Quality: Fair Conclusion Normal biventricular systolic function. Mild RV dilation. Mild MR, mild TR. RVSP 25-30 mmHg. Electronically signed by : Princess Solorzano MD 10/30/2023 23:27:02
[2023-10-28] MEDS: REGADENOSON 0.4MG/5ML SYRINGE 0.4 MG IV (10:22)
[2023-10-28] MEDS: SODIUM CHLORIDE 0.9% 10ML SYR (RAD ONLY) 10 ML IV ×2 (10:22)
[2023-10-28] MEDS: ISOTOPE MYOVIEW (PER STUDY) 1 DOSE IV (10:22)
== END 2023-10-28 23:59 | disposition home or self-care (01) ==
LOC: RAD 07:56
PROVIDERS: PCP Internal Medicine; Visit Provider Nurse Practitioner Family
DX: R94.31 Abnormal electrocardiogram [ECG] [EKG] (principal); R06.00 Dyspnea, unspecified; I20.89 Other forms of angina pectoris; M79.89 Other specified soft tissue disorders; Z86.718 Personal history of other venous thrombosis and embolism; Z87.891 Personal history of nicotine dependence
CPT/HCPCS: 78452; 93017; 93018; 93306; 93970; A9502; J2785

== ENCOUNTER 2024-04-13 12:35 | Outpatient (CLI) | payer OTHER, SELFPAY ==
[2024-04-13 13:36] LABS: Alanine Aminotransferase 35 U/L (12-78); Albumin Level 4.6 g/dl (3.5-5.0); Aspartate Amino Transferase 42 U/L (14-36); Bilirubin,Direct 0.4 mg/dl (0.0-0.4); Bilirubin,Indirect 0.2 mg/dL (0.0-0.9); Bilirubin,Total 0.6 mg/dl (0.2-1.3); Bilirubin,Unconjugated 0.2 mg/dL (0.0-1.1); Total Protein,Serum 6.9 g/dl (6.3-8.2); Triglycerides 84 mg/dl (30-150)
[2024-04-13 13:37] LABS: Alkaline Phosphatase 62 U/L (38-126); Chol/HDL Ratio 2.4 (1-3.5); Cholesterol 176 mg/dl (140-200); HDL Cholesterol 73 mg/dl (40-60); VLDL Cholesterol 17 mg/dL (0-40)
[2024-04-13 13:48] LABS: Direct LDL Cholesterol 79.13 mg/dL (100-129)
== END 2024-04-13 23:59 | disposition home or self-care (01) ==
LOC: LAB 12:37
PROVIDERS: PCP Family Medicine; Visit Provider Nurse Practitioner Family
DX: R06.09 Other forms of dyspnea (principal); R94.31 Abnormal electrocardiogram [ECG] [EKG]; E78.5 Hyperlipidemia, unspecified; I25.10 Atherosclerotic heart disease of native coronary artery without angina pectoris
CPT/HCPCS: 36415; 80061; 80076

== ENCOUNTER 2024-05-11 13:48 | Outpatient (CLI) | payer OTHER, SELFPAY ==
[2024-05-11 14:23] LABS: Basophils # 0.1 K/mm3 (0-0.2); Basophils % 0.9 % (0.1-2.0); Eosinophils # 0.2 K/mm3 (0.0-0.4); Eosinophils % 3.8 % (0.1-12.0); Hematocrit 41.5 % (37.0-47.0); Hemoglobin 13.2 g/dL (12.2-16.2); Lymphocytes # 1.4 K/mm3 (0.7-4.5); Lymphocytes % 24.2 % (10-50); Mean Corpuscular HGB Conc 31.8 g/dL (31.8-35.4); Mean Corpuscular Hemoglobin 30.5 pg (27.0-31.2); Mean Corpuscular Volume 95.8 fl (81-99); Mean Platelet Volume 11.1 fl (7.4-10.4); Monocytes # 0.4 K/mm3 (0.1-1.0); Monocytes % 7.5 % (1.7-9.3); Neutrophils # 3.6 K/mm3 (1.8-7.8); Neutrophils % 63.3 % (37.0-80.0); Platelet Count 180 K/mm3 (142-424); Red Blood Count 4.33 M/mm3 (4.20-5.40); Red Cell Distribution Width 11.9 % (11.5-17.5); White Blood Count 5.7 K/mm3 (4.8-10.8)
[2024-05-15 09:19] LABS: D001-IgE D pteronyssinus <0.10 kU/L (Class 0); D002-IgE D farinae <0.10 kU/L (Class 0); E001-IgE Cat Dander <0.10 kU/L (Class 0); E005-IgE Dog Dander <0.10 kU/L (Class 0); E072-IgE Mouse Urine <0.10 kU/L (Class 0); G002-IgE Bermuda Grass <0.10 kU/L (Class 0); G006-IgE Timothy Grass <0.10 kU/L (Class 0); I006-IgE Cockroach, German 0.18 kU/L (Class 0/I); Immunoglobulin E, Total 20 IU/mL (6-495); M001-IgE Penicillium chrysogen <0.10 kU/L (Class 0); M002-IgE Cladosporium herbarum <0.10 kU/L (Class 0); M003-IgE Aspergillus fumigatus 0.28 kU/L (Class 0/I); M006-IgE Alternaria alternata <0.10 kU/L (Class 0); T001-IgE Maple/Box Elder <0.10 kU/L (Class 0); T003-IgE Common Silver Birch <0.10 kU/L (Class 0); T006-IgE Cedar, Mountain <0.10 kU/L (Class 0); T007-IgE Oak, White <0.10 kU/L (Class 0); T008-IgE Elm, American <0.10 kU/L (Class 0); T010-IgE Walnut <0.10 kU/L (Class 0); T011-IgE Maple Leaf Sycamore <0.10 kU/L (Class 0); T014-IgE Cottonwood <0.10 kU/L (Class 0); T015-IgE Ash, White <0.10 kU/L (Class 0); T022-IgE Pecan, Hickory <0.10 kU/L (Class 0); T070-IgE White Mulberry <0.10 kU/L (Class 0); W001-IgE Ragweed, Short <0.10 kU/L (Class 0); W011-IgE Thistle, Russian <0.10 kU/L (Class 0); W014-IgE Pigweed, Common <0.10 kU/L (Class 0); W018-IgE Sheep Sorrel <0.10 kU/L (Class 0)
== END 2024-05-11 23:59 | disposition home or self-care (01) ==
LOC: LAB 13:49
PROVIDERS: PCP Internal Medicine; Visit Provider Internal Medicine Pulmonary Disease
DX: J30.9 Allergic rhinitis, unspecified (principal)
CPT/HCPCS: 36415; 82785; 85025; 86003

== ENCOUNTER 2024-07-13 09:47 | Outpatient (CLI) | payer OTHER, SELFPAY ==
[2024-07-13] MEDS: ALBUTEROL 0.083% 2.5 MG/3 ML NEB IH (11:13)
--- NOTE | 2024-07-13 11:13 | PC.NURSE ---
PFT and 6 Minute Walk Test completed. Pt did not meet ATS standards. Pt seems very weak and did become very tired throughout testing. Pt was unable to complete a second attempt on DLCO and Pt unable to complete the Pleth, did not seem to have the stamina and had muscle fatigue.
== END 2024-07-13 23:59 | disposition home or self-care (01) ==
LOC: RT 09:48
PROVIDERS: PCP Internal Medicine; Visit Provider Internal Medicine Pulmonary Disease
DX: R06.09 Other forms of dyspnea (principal)
CPT/HCPCS: 94060; 94618; 94726; 94729; J7613

== ENCOUNTER → 2024-08-17 08:04 | Outpatient (CLI) | payer OTHER, SELFPAY | LOC: SL 08-28 08:04 | PROVIDERS: PCP Nurse Practitioner Family; Visit Provider Nurse Practitioner Family | DX: G47.33 Obstructive sleep apnea (adult) (pediatric) (principal); R06.09 Other forms of dyspnea; J45.909 Unspecified asthma, uncomplicated; M79.89 Other specified soft tissue disorders; E78.2 Mixed hyperlipidemia; I25.118 Atherosclerotic heart disease of native coronary artery with other forms of angina pectoris; R40.0 Somnolence; G47.9 Sleep disorder, unspecified | CPT/HCPCS: G0399 ==

== ENCOUNTER 2024-09-21 13:29 | Outpatient (CLI) | payer OTHER, SELFPAY ==
[2024-09-21 14:29] LABS: Chloride 108 mmol/L (98-107); Sodium 141 mmol/L (136-145)
[2024-09-21 14:30] LABS: Potassium 4.2 mmoL/L (3.5-5.1)
[2024-09-21 14:32] LABS: Blood Urea Nitrogen 22 mg/dl (7-17); Estimated Glomerular Filt Rate 67 ml/min (>60); GFR (African American) 81 ML/MIN (>60)
[2024-09-21 14:33] LABS: Anion Gap 8.2 mEq/L (5-15); Calcium 9.1 mg/dl (8.4-10.2); Carbon Dioxide 29 mmol/L (22.0-30.0); Glucose 87 mg/dl (74-100)
== END 2024-09-21 23:59 | disposition home or self-care (01) ==
LOC: LAB 13:30
PROVIDERS: PCP Internal Medicine; Visit Provider Nurse Practitioner Family
DX: I25.118 Atherosclerotic heart disease of native coronary artery with other forms of angina pectoris (principal)
CPT/HCPCS: 36415; 80048

== ENCOUNTER 2024-10-02 20:24 | Emergency (ER) | payer OTHER, SELFPAY ==
[2024-10-02] VITALS (8 sets, daily range): BP systolic 87–116; BP diastolic 50–99; PULSE 72–80; RESP 16–20; TEMP 36.6; O2SAT 98–100; BMI 25.4
--- NOTE | 2024-10-02 20:24 | ECG_ITS ---
APPROVED REPORT Exam: Resting ECG HR:79 bpm ECG Measurements Heart Rate 79 AXES KS 137 P 78 QRSd 84 QRS 89 QT 353 T 66 QTc 387 Conclusion SINUS RHYTHM POSSIBLE RIGHT ATRIAL ENLARGEMENT [0.25mV P-WAVE] BORDERLINE ECG No STEMI Electronically signed by : CLAU BRAGG, 10/03/2024 20:05:12
--- NOTE | 2024-10-02 20:33 | ED_ITS ---
Discharge Plan Disposition Patient Disposition: Home, Self-Care Condition: Good Chief Complaint: Chest Pain Prescriptions Prescriptions: New doxycycline hyclate 100 mg tablet 100 mg PO BID 7 Days Qty: 14 0RF No Action atorvastatin [Lipitor] 20 mg tablet 20 mg PO DAILY Qty: 90 3RF aspirin [Adult Aspirin Regimen] 81 mg tablet,delayed release (DR/EC) 81 mg PO DAILY Qty: 30 5RF budesonide-formoterol [Symbicort] 160-4.5 mcg/actuation HFA aerosol inhaler 1 puff inhalation BID 90 Days Qty: 10.2 2RF fluticasone propionate [Flonase Allergy Relief] 50 mcg/actuation spray,suspension 2 spray intranasal DAILY 90 Days Qty: 16 2RF Rx Instructions: administer into each nostril azelastine [Astepro Allergy] 205.5 mcg (0.15 %) spray,non-aerosol 2 spray intranasal HS 90 Days Qty: 30 3RF Rx Instructions: administer into each nostril spironolactone [Aldactone] 25 mg tablet 12.5 mg PO DAILY Qty: 30 2RF furosemide [Lasix] 40 mg tablet 20 mg PO DAILY Qty: 30 2RF albuterol sulfate [Ventolin HFA] 90 mcg/actuation Hfa Aerosol Inhaler 2 puff INHALATION Q6H PRN (Reason: Breathing) fluticasone propionate 50 mcg/actuation [place],Suspension 2 spray INTRANASAL DAILY Rx Instructions: administer into each nostril topiramate 50 mg tablet 150 mg PO DAILY budesonide-formoterol [Symbicort] 160-4.5 mcg/actuation Hfa Aerosol Inhaler 2 puff INHALATION BID Briviact 50 mg tablet 50 mg PO BID Briviact 100 mg tablet 100 mg PO BID Ubrelvy 50 mg Tablet 50 mg PO NEEDED PRN (Reason: Migraine onset) Referrals Follow up/Referrals: Mane Sol MD [Primary Care Provider] - See instructions Patsy Michele MD [Physician] - See instructions Vega Solorzano MD [Staff Physician] - See instructions Activity Restrictions/Add. Instructions Additional Instructions/Restrictions: You were evaluated in the emergency department today. At this time, your CT scan is concerning for possible pneumonia so given your symptoms we are treating you with doxycycline for this. 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 I recommend calling them tomorrow to let them know that you were seen here in the emergency department. Return to the emergency department for new or worsening symptoms. Clinical Impressions Clinical Impression: Pneumonia, Chest pain Instructions Patient Instructions: Pneumonia--Adult Print Language Print Language: Luxembour[place] Discharge ED Provider: Monica Segal General Adult HPI <TRUONG Dawson - Last Filed: 10/02/24 21:47> General Chief complaint: Chest Pain Stated complaint: CP Time Seen by Provider: 10/02/24 20:33 Mode of Arrival: Wheelchair Source of Information: Patient and Parent(s) Description of Symptoms (Recalled from ER Triage Doc. by RN): Patient reports chest pain starting around 18:30. Sharp pain 7/10. Worse upon inspiration. History of Present Illness HPI narrative: Patient presents for evaluation of chest pain. Patient states that she has had chest pain for several weeks that has been persistent however this evening around 630 it significantly escalated. It does not radiate. She denies any fever chills hemoptysis hematochezia melena nausea vomiting diarrhea. Patient last had a cardiology follow-up on 09/21/2024 that showed she was having chest pain and pressure with or without activity shortness of breath with activity and improving with rest. No intervention was recommended and medical management was the prescription with follow-up in 6 months. Related Data Home Medications ?Medication ?Instructions ?Recorded ?Confirmed albuterol sulfate 90 mcg/actuation 2 puff inhalation Q6H PRN Breathing 07/19/22 09/21/24 aerosol inhaler (Ventolin HFA) brivaracetam 100 mg tablet 100 mg PO BID Seizures 07/19/22 09/21/24 (Briviact) brivaracetam 50 mg tablet 50 mg PO BID Seizures 07/19/22 09/21/24 (Briviact) budesonide-formoterol HFA 160 2 puff inhalation BID Breathing 07/19/22 09/21/24 mcg-4.5 mcg/actuation aerosol problems inhaler (Symbicort) fluticasone propionate 50 2 spray intranasal DAILY Allergies 07/19/22 09/21/24 mcg/actuation nasal spray,suspension topiramate 50 mg tablet 150 mg PO DAILY Seizures 07/19/22 09/21/24 ubrogepant 50 mg tablet (Ubrelvy) 50 mg PO NEEDED PRN Migraine 07/19/22 09/21/24 onset Previous Rx's ?Medication ?Instructions ?Recorded aspirin 81 mg tablet,delayed 81 mg PO DAILY #30 tabs 01/06/24 release (Adult Aspirin Regimen) atorvastatin 20 mg tablet (Lipitor) 20 mg PO DAILY #90 tabs 04/13/24 azelastine 205.5 mcg (0.15 %) 2 spray intranasal HS 90 days #30 07/13/24 nasal spray (Astepro Allergy) mL budesonide-formoterol HFA 160 1 puff inhalation BID 90 days 07/13/24 mcg-4.5 mcg/actuation aerosol #10.2 grams inhaler (Symbicort) fluticasone propionate 50 2 spray intranasal DAILY 90 days 07/13/24 mcg/actuation nasal #16 grams spray,suspension (Flonase Allergy Relief) furosemide 40 mg tablet (Lasix) 20 mg (1/2 x 40 mg) PO DAILY #30 07/20/24 tabs spironolactone 25 mg tablet 12.5 mg (1/2 x 25 mg) PO DAILY #30 07/20/24 (Aldactone) tabs doxycycline hyclate 100 mg tablet 100 mg PO BID 7 days #14 tabs 10/02/24 Allergies Allergy/AdvReac Type Severity Reaction Status Date / Time carbamazepine (CARBAMAZEPINE) Allergy Unknown Verified 09/21/24 12:53 diphenhydramine Allergy Unknown Verified 09/21/24 12:53 (DIPHENHYDRAMINE) divalproex sodium Allergy Unknown Verified 09/21/24 12:53 (DIVALPROEX SODIUM) Hydantoins (HYDANTOINS) Allergy Unknown Verified 09/21/24 12:53 isopropyl alcohol (ISOPROPYL Allergy Unknown Verified 09/21/24 12:53 ALCOHOL) lamotrigine (LAMOTRIGINE) Allergy Unknown Verified 09/21/24 12:53 levetiracetam (LEVETIRACETAM) Allergy Unknown Verified 09/21/24 12:53 loracarbef (LORACARBEF) Allergy Unknown Verified 09/21/24 12:53 methylprednisolone Allergy Unknown Verified 09/21/24 12:53 (METHYLPREDNISOLONE) penicillin G (PENICILLIN G) Allergy Unknown Verified 09/21/24 12:53 Penicillins (PENICILLINS) Allergy Unknown Verified 09/21/24 12:53 phenytoin (PHENYTOIN) Allergy Unknown Verified 09/21/24 12:53 valproic acid (VALPROIC ACID) Allergy Unknown Verified 09/21/24 12:53 zonisamide (ZONISAMIDE) Allergy Unknown Verified 09/21/24 12:53 latex Allergy Verified 09/21/24 12:53 powdered gloves Allergy Uncoded 09/21/24 12:53 [facility] <TRUONG Dawson - Last Filed: 10/02/24 21:47> [facility] Disclaimer: The information contained in this section may have been updated after the patient was seen, as this information can be updated by other users. Medical History Dyspnea on exertion Asthma Epileptic seizure History of DVT (deep vein thrombosis) Abnormal ECG Dyspnea Atypical angina Vaginal atrophy Hypernatremia Surgical History Status post VNS (vagus nerve stimulator) placement History of cholecystectomy History of surgery on lower extremity History of partial hysterectomy Family History Other Anemia Kidney disease Seizures Stroke Social History Smoking Status: Never smoker smoking status stop date: 2007 second hand exposure: No alcohol intake: never current occupational status: employed Travel in the last 8 weeks?: None household members: family housing: house current occupation: [employer] current occupational exposures/hazards: No caffeine: Yes Have you lived/traveled outside [place] in past 30 days?: No Contact w/someone who lives/traveled outside US past 30 days?: No Exposure to someone with infectious disease in past 14 days?: No Do you have a fever (greater than 100.4 F or 38 C)?: No Have you tested positive for COVID-19?: No Exposed to someone with COVID-19 in past 14 days?: No Do you have a sore throat?: No Do you have a cough?: No Do you have any weakness?: No Do you have any diarrhea?: No Are you experiencing any unusual bleeding?: No Do you have any muscle aches/pain?: No Do you have any abdominal pain?: No Are you experiencing loss of taste or smell?: No Other Medical History Have you received the Flu Vaccine for this season: No Have you received the Pneumonia Vaccine: Yes <TRUONG Dawson - Last Filed: 10/02/24 21:47> ROS Obtained: Yes Systems reviewed as appropriate & no additional complaints except as documented Physical Exam <TRUONG Dawson - Last Filed: 10/02/24 21:47> General General appearance: alert and in no apparent distress Respiratory Respiratory exam: Present normal lung sounds bilaterally Cardiovascular Cardiovascular exam: Present regular rate Neurological Exam Neurological exam: Present alert and oriented X3 Medical Decision Making <TRUONG Dawson - Last Filed: 10/02/24 21:47> Medical Records Medical records reviewed: Yes I reviewed the patient's medical records. Screening: Per USPSTF and CDC recommendations, given the prevalence of disease in our region, it is our hospital?s policy to screen for HIV and viral Hepatitis for all patients aged 18 and over and those with ongoing risk factors. [place] Inquiry Pt receiving controlled substance: No Vital Signs: 10/02/24 20:28 10/02/24 20:32 10/02/24 21:00 Temperature 97.9 F Temperature Source Oral Pulse Rate 80 Pulse Rate [Right Radial] 80 Respiratory Rate 16 20 Blood Pressure 105/62 L Blood Pressure [Right Arm] 116/66 Blood Pressure Mean [Right Arm] 82 Blood Pressure Source [Right Arm] Automatic Cuff Blood Pressure Position [Right Arm] Supine 02 Sat by Pulse Oximetry 100 100 Oxygen Delivery Method Room Air 10/02/24 22:00 10/02/24 22:19 10/02/24 22:30 Temperature Temperature Source Pulse Rate 72 80 72 Pulse Rate [Right Radial] Respiratory Rate 18 Blood Pressure 89/50 L 116/99 H 87/50 L Blood Pressure [Right Arm] Blood Pressure Mean [Right Arm] Blood Pressure Source [Right Arm] Blood Pressure Position [Right Arm] 02 Sat by Pulse Oximetry 99 98 100 Oxygen Delivery Method 10/02/24 22:52 Temperature Temperature Source Pulse Rate 74 Pulse Rate [Right Radial] Respiratory Rate Blood Pressure 100/61 L Blood Pressure [Right Arm] Blood Pressure Mean [Right Arm] Blood Pressure Source [Right Arm] Blood Pressure Position [Right Arm] 02 Sat by Pulse Oximetry 100 Oxygen Delivery Method Lab Data Lab results reviewed: Yes I reviewed the patient's lab results. Lab Results 10/02/24 20:36: WBC 8.4, RBC 4.54, Hgb 13.7, Hct 43.2, MCV 95.2, MCH 30.2, MCHC 31.7 L, RDW 12.2, Plt Count 175, MPV 11.3 H, Neut % (Auto) 69.9, Lymph % (Auto) 18.0, Barren % (Auto) 7.7, Eos % (Auto) 3.6, Baso % (Auto) 0.7, Neut # (Auto) 5.9, Lymph # (Auto) 1.5, Barren # (Auto) 0.7, Eos # (Auto) 0.3, Baso # (Auto) 0.1, Total Counted 100, Neutrophils % (Manual) 81 H, Lymphocytes % (Manual) 13, Monocytes % (Manual) 5, Eosinophils % (Manual) 1, Differential Comment Comment, Platelet Estimate Normal, RBC Morphology Normal, PT 11.1, INR 1.00, Sodium 143, Potassium 4.1, Chloride 106, Carbon Dioxide 30, Anion Gap 11.1, BUN 21 H, C reatinine 1.10 H, Estimated Creat Clear 66, Estimated GFR 53 L, Est GFR ( Amer) 64, Glucose 96, Calcium 9.4, Magnesium 2.0, Total Bilirubin 0.4, AST 36, ALT 36, Alkaline Phosphatase 80, Troponin I < 0.01, NT-Pro-B Natriuret Pep 221 H , Total Protein 7.3, Albumin 4.6, Globulin 2.7, Albumin/Globulin Ratio 1.7, Lipase 188, Procalcitonin 0.034, TSH 2.04, Free T4 Index 2.6 L, Thyroxine (T4) 8.7, T3 Uptake 30 10/02/24 20:51: SARS-CoV-2 (PCR) Not detected, Influenza A Untype (PCR) Not detected, Influenza Type B (PCR) Not detected 10/02/24 22:27: Troponin I < 0.01 10/02/24 20:36 10/02/24 20:36 Orders (Tests/Meds): ED MEDICATIONS Generic Name Dose Route Start Last Admin Trade Name Freq PRN Reason Stop Dose Admin Doxycycline Hyclate 100 mg 10/02/24 23:02 Doxycycline Hycl 100 Mg Tablet PO 10/02/24 23:03 ONCE ONE Discontinued Medications Generic Name Dose Route Start Last Admin Trade Name Sarkis PRN Reason Stop Dose Admin Acetaminophen 1,000 mg 10/02/24 20:38 10/02/24 20:56 Acetaminophen 500mg Tab PO 10/02/24 20:39 1,000 mg ONCE ONE Administration Sodium Chloride 1,000 mls @ 999 mls/hr 10/02/24 20:38 10/02/24 20:55 Sod Chlor 0.9% 1000ml Bag IV 10/02/24 21:38 999 mls/hr .Q1H1M ONE Administration Iopamidol 70 ml 10/02/24 21:34 10/02/24 21:35 Iopamidol-370 (76%);100ml Bottle IV 10/02/24 21:35 70 ml ONCE ONE Administration Ketorolac Tromethamine 15 mg 10/02/24 20:38 10/02/24 20:56 Ketorolac 30mg/Ml Vial IV 10/02/24 20:39 15 mg ONCE ONE Administration Ondansetron HCl 4 mg 10/02/24 20:38 10/02/24 20:56 Ondansetron 4mg/2ml Vial IV 10/02/24 20:39 4 mg ONCE ONE Administration Sodium Chloride 10 ml 10/02/24 21:34 10/02/24 21:35 Sodium Chloride 0.9% 10ml Syr (Rad Only) IV 10/02/24 21:35 10 ml ONCE ONE Administration Sodium Chloride 50 ml 10/02/24 21:34 10/02/24 21:34 0.9 % Sodium Chloride 50 Ml Vial IV 10/02/24 21:35 50 ml ONCE ONE Administration ORDERS Category Date Time Status CT angio chest PE protocol Stat Cat Scan 10/02/24 20:38 Completed BNP [NT Pro Brain Natriuretic Pep.] Stat Lab 10/02/24 20:36 Completed CBC w/Auto Diff [Complete Blood Count Auto Diff] Stat Lab 10/02/24 20:36 Completed CMP [Comprehensive Metabolic Panel] Stat Lab 10/02/24 20:36 Completed INR [Prothrombin Time INR] Stat Lab 10/02/24 20:36 Completed Lipase Stat Lab 10/02/24 20:36 Completed Magnesium Stat Lab 10/02/24 20:36 Completed Procalcitonin Stat Lab 10/02/24 20:36 Completed Rapid PCR Covid and Flu A/B Stat Lab 10/02/24 20:51 Completed Thyroid Panel Stat Lab 10/02/24 20:36 Completed Trop I [Troponin I] Stat Lab 10/02/24 20:36 Completed Troponin I Q3H Lab 10/02/24 22:27 Completed Troponin I Q3H Lab 10/03/24 02:45 Ordered UA [Urinalysis and Microscopic] Stat Lab 10/02/24 20:39 Ordered Medical Decision Narrative: In summary patient is a 49-year-old female who presents to the emergency department for evaluation of pain. Patient is hemodynamically stable upon arrival, afebrile with blood pressure 116/66 pulse 80 respiratory rate 16 temperature 97.9 100% on room air. Physical exam is remarkable for clear breath sounds no increased work of breathing or adventitious sounds or accessory muscle use, no reproducible chest pain on palpation abdomen soft nontender no rebound or guarding no rigidity. Bowel sounds normal active.. Differential diagnosis includes angina versus ACS versus PE versus pneumonia versus gastrointestinal cause etc. Initial workup will be conducted with hematologic labs CTA PE protocol twelve-lead EKG. Initial interventions include Tylenol Toradol Zofran. Initial workup ordered and pending at the time of handoff to Dr. Segal at 2200 hours <Monica Segal, DO - Last Filed: 10/02/24 23:07> Vital Signs: 10/02/24 20:28 10/02/24 20:32 10/02/24 21:00 Temperature 97.9 F Temperature Source Oral Pulse Rate 80 Pulse Rate [Right Radial] 80 Respiratory Rate 16 20 Blood Pressure 105/62 L Blood Pressure [Right Arm] 116/66 Blood Pressure Mean [Right Arm] 82 Blood Pressure Source [Right Arm] Automatic Cuff Blood Pressure Position [Right Arm] Supine 02 Sat by Pulse Oximetry 100 100 Oxygen Delivery Method Room Air 10/02/24 22:00 10/02/24 22:19 10/02/24 22:30 Temperature Temperature Source Pulse Rate 72 80 72 Pulse Rate [Right Radial] Respiratory Rate 18 Blood Pressure 89/50 L 116/99 H 87/50 L Blood Pressure [Right Arm] Blood Pressure Mean [Right Arm] Blood Pressure Source [Right Arm] Blood Pressure Position [Right Arm] 02 Sat by Pulse Oximetry 99 98 100 Oxygen Delivery Method 10/02/24 22:52 Temperature Temperature Source Pulse Rate 74 Pulse Rate [Right Radial] Respiratory Rate Blood Pressure 100/61 L Blood Pressure [Right Arm] Blood Pressure Mean [Right Arm] Blood Pressure Source [Right Arm] Blood Pressure Position [Right Arm] 02 Sat by Pulse Oximetry 100 Oxygen Delivery Method Lab Data Lab Results 10/02/24 20:36: WBC 8.4, RBC 4.54, Hgb 13.7, Hct 43.2, MCV 95.2, MCH 30.2, MCHC 31.7 L, RDW 12.2, Plt Count 175, MPV 11.3 H, Neut % (Auto) 69.9, Lymph % (Auto) 18.0, Barren % (Auto) 7.7, Eos % (Auto) 3.6, Baso % (Auto) 0.7, Neut # (Auto) 5.9, Lymph # (Auto) 1.5, Barren # (Auto) 0.7, Eos # (Auto) 0.3, Baso # (Auto) 0.1, Total Counted 100, Neutrophils % (Manual) 81 H, Lymphocytes % (Manual) 13, Monocytes % (Manual) 5, Eosinophils % (Manual) 1, Differential Comment Comment, Platelet Estimate Normal, RBC Morphology Normal, PT 11.1, INR 1.00, Sodium 143, Potassium 4.1, Chloride 106, Carbon Dioxide 30, Anion Gap 11.1, BUN 21 H, C reatinine 1.10 H, Estimated Creat Clear 66, Estimated GFR 53 L, Est GFR ( Amer) 64, Glucose 96, Calcium 9.4, Magnesium 2.0, Total Bilirubin 0.4, AST 36, ALT 36, Alkaline Phosphatase 80, Troponin I < 0.01, NT-Pro-B Natriuret Pep 221 H , Total Protein 7.3, Albumin 4.6, Globulin 2.7, Albumin/Globulin Ratio 1.7, Lipase 188, Procalcitonin 0.034, TSH 2.04, Free T4 Index 2.6 L, Thyroxine (T4) 8.7, T3 Uptake 30 10/02/24 20:51: SARS-CoV-2 (PCR) Not detected, Influenza A Untype (PCR) Not detected, Influenza Type B (PCR) Not detected 10/02/24 22:27: Troponin I < 0.01 Orders (Tests/Meds): ED MEDICATIONS Generic Name Dose Route Start Last Admin Trade Name Freq PRN Reason Stop Dose Admin Doxycycline Hyclate 100 mg 10/02/24 23:02 Doxycycline Hycl 100 Mg Tablet PO 10/02/24 23:03 ONCE ONE Discontinued Medications Generic Name Dose Route Start Last Admin Trade Name Sarkis PRN Reason Stop Dose Admin Acetaminophen 1,000 mg 10/02/24 20:38 10/02/24 20:56 Acetaminophen 500mg Tab PO 10/02/24 20:39 1,000 mg ONCE ONE Administration Sodium Chloride 1,000 mls @ 999 mls/hr 10/02/24 20:38 10/02/24 20:55 Sod Chlor 0.9% 1000ml Bag IV 10/02/24 21:38 999 mls/hr .Q1H1M ONE Administration Iopamidol 70 ml 10/02/24 21:34 10/02/24 21:35 Iopamidol-370 (76%);100ml Bottle IV 10/02/24 21:35 70 ml ONCE ONE Administration Ketorolac Tromethamine 15 mg 10/02/24 20:38 10/02/24 20:56 Ketorolac 30mg/Ml Vial IV 10/02/24 20:39 15 mg ONCE ONE Administration Ondansetron HCl 4 mg 10/02/24 20:38 10/02/24 20:56 Ondansetron 4mg/2ml Vial IV 10/02/24 20:39 4 mg ONCE ONE Administration Sodium Chloride 10 ml 10/02/24 21:34 10/02/24 21:35 Sodium Chloride 0.9% 10ml Syr (Rad Only) IV 10/02/24 21:35 10 ml ONCE ONE Administration Sodium Chloride 50 ml 10/02/24 21:34 10/02/24 21:34 0.9 % Sodium Chloride 50 Ml Vial IV 10/02/24 21:35 50 ml ONCE ONE Administration ORDERS Category Date Time Status CT angio chest PE protocol Stat Cat Scan 10/02/24 20:38 Completed BNP [NT Pro Brain Natriuretic Pep.] Stat Lab 10/02/24 20:36 Completed CBC w/Auto Diff [Complete Blood Count Auto Diff] Stat Lab 10/02/24 20:36 Completed CMP [Comprehensive Metabolic Panel] Stat Lab 10/02/24 20:36 Completed INR [Prothrombin Time INR] Stat Lab 10/02/24 20:36 Completed Lipase Stat Lab 10/02/24 20:36 Completed Magnesium Stat Lab 10/02/24 20:36 Completed Procalcitonin Stat Lab 10/02/24 20:36 Completed Rapid PCR Covid and Flu A/B Stat Lab 10/02/24 20:51 Completed Thyroid Panel Stat Lab 10/02/24 20:36 Completed Trop I [Troponin I] Stat Lab 10/02/24 20:36 Completed Troponin I Q3H Lab 10/02/24 22:27 Completed Troponin I Q3H Lab 10/03/24 02:45 Ordered UA [Urinalysis and Microscopic] Stat Lab 10/02/24 20:39 Ordered ECG Data Tracing #1: I reviewed this ECG and interpreted as documented below: Normal sinus rhythm with a ventricular rate of [address] changes concerning for ischemia. Normal intervals ECG initial impression date: 10/02/24 ECG initial impression time: 20:26 Medical Decision Narrative: In summary patient is a 49-year-old female who presents to the emergency department for evaluation of pain. Patient is hemodynamically stable upon arrival, afebrile with blood pressure 116/66 pulse 80 respiratory rate 16 temperature 97.9 100% on room air. Physical exam is remarkable for clear breath sounds no increased work of breathing or adventitious sounds or accessory muscle use, no reproducible chest pain on palpation abdomen soft nontender no rebound or guarding no rigidity. Bowel sounds normal active.. Differential diagnosis includes angina versus ACS versus PE versus pneumonia versus gastrointestinal cause etc. Initial workup will be conducted with hematologic labs CTA PE protocol twelve-lead EKG. Initial interventions include Tylenol Toradol Zofran. Initial workup ordered and pending at the time of handoff to Dr. Segal at 2200 hours DO Philipp: I was consulted by the ROMELIA, and we discussed the complexity of the problems being addressed. I approved the treatment and management plan for this patient's care in the emergency department, thus performing a substantive portion of the medical decision making. On my assessment of the patient, she is sitting upright in no acute distress with normal vitals on cardiac telemetry. Blood pressures are soft but maps are normal. CBC is reassuring with no significant leukocytosis or anemia, chemistry is reassuring with negative initial troponin. EKG obtained is reassuring. CTA PE protocol was ordered and I independently interpreted this prior to radiology read. I noted left sided consolidation. They advised that this is scarring versus atelectasis versus pneumonia. Please see their read for final interpretation. I discussed this with the patient and she stated that she did has had an increase in cough and congestion over the last several days, especially at night. She states it could be pneumonia. Given this, will treat for community-acquired pneumonia with doxycycline. Second troponin resulted and is negative. Given reassuring workup and exam, I feel the patient is appropriate for discharge home with prescription for doxycycline and follow-up closely with cardiology, pulmonology, and her primary care provider. She was given instructions for this. She was discharged after all questions were answered. Monica Segal, DO Critical Care <TRUONG Dawson - Last Filed: 10/02/24 21:47> Critical Care Time Critical Care Time: No
--- NOTE | 2024-10-02 20:38 | CT_ITS ---
PROCEDURE INFORMATION: Exam: CTA Chest With Contrast Exam date and time: 10/02/2024 9:25 PM Age: 49 years old Clinical indication: Pain; Other: Cp; Additional info: Chest pain TECHNIQUE: Imaging protocol: Computed tomographic angiography of the chest with contrast. Exam focused on the arteries. 3D rendering (Not supervised by radiologist): MIP and/or 3D reconstructed images were created by the technologist. Radiation optimization: All CT scans at this facility use at least one of these dose optimization techniques: automated exposure control; mA and/or kV adjustment per patient size (includes targeted exams where dose is matched to clinical indication); or iterative reconstruction. Contrast material: ISOVUE; Contrast volume: 70 ml; Contrast route: INTRAVENOUS (IV); COMPARISON: CR XR CHEST 2V 10/13/2023 6:27 PM FINDINGS: Pulmonary arteries: Normal. No pulmonary emboli. Aorta: Unremarkable. No aortic aneurysm. No aortic dissection. Lungs: Small focal area of opacity in the left lower lobe pleural based laterally findings which could indicate a small area of pneumonia or atelectasis or scarring. There are subcentimeter tiny nodular densities in the right lower lobe . Otherwise the remainder of the lungs are clear . Pleural spaces: No pleural effusion. No pneumothorax. Heart: Unremarkable. No cardiomegaly. No pericardial effusion. Lymph nodes: Calcified prevascular lymph nodes. No enlarged lymph nodes. Bones/joints: Unremarkable. No acute fracture. Soft tissues: Unremarkable. IMPRESSION: No pulmonary embolism Small focal area of opacity in the left lower lobe pleural based laterally findings which could indicate a small area of pneumonia or atelectasis or scarring. There are subcentimeter tiny nodular densities in the right lower lobe which could be infectious in nature however recommend follow-up CT. For patients at low risk (minimal or absent history of smoking and of other known risk factors), no routine follow-up is indicated. For patients at high risk (history of smoking or of other known risk factors), consider optional CT at 12 months. (elly Rivero al., Fleischner Society, 2017)
[2024-10-02 20:45] LABS: Basophils # 0.1 K/mm3 (0-0.2); Basophils % 0.7 % (0.1-2.0); Eosinophils # 0.3 Kmm3 (0.0-0.4); Eosinophils % 3.6 % (0.1-12.0); Hematocrit 43.2 % (37.0-47.0); Hemoglobin 13.7 g/dL (12.2-16.2); Immature Granulocytes # 0.01 10^3uL; Immature Granulocytes % 0.1 %; Lymphocytes # 1.5 K/mm3 (0.7-4.5); Mean Corpuscular HGB Conc 31.7 g/dL (31.8-35.4); Mean Corpuscular Hemoglobin 30.2 pg (27.0-31.2); Mean Corpuscular Volume 95.2 fl (81-99); Mean Platelet Volume 11.3 fl (7.4-10.4); Monocytes # 0.7 K/mm3 (0.1-1.0); Monocytes % 7.7 % (1.7-9.3); Neutrophils # 5.9 K/mm3 (1.8-7.8); Neutrophils % 69.9 % (37.0-80.0); Nucleated Red Blood Cells # 0 10^3/uL; Nucleated Red Blood Cells % 0 %; Platelet Count 175 K/mm3 (142-424); Red Blood Count 4.54 M/mm3 (4.20-5.40); Red Cell Distribution Width 12.2 % (11.5-17.5); Red Cell Distribution Width-SD 42.9 fL; White Blood Count 8.4 K/mm3 (4.8-10.8)
[2024-10-02 20:48] LABS: MANUAL DIFFERENTIAL MANUAL DIFFERENTIAL (MANUAL DIFF)
[2024-10-02 20:53] LABS: Alanine Aminotransferase 36 U/L (12-78); Albumin Level 4.6 g/dl (3.5-5.0); Albumin/Globulin Ratio 1.7 (1.1-1.8); Alkaline Phosphatase 80 U/L (38-126); Anion Gap 11.1 mEq/L (5-15); Aspartate Amino Transferase 36 U/L (14-36); Bilirubin,Total 0.4 mg/dl (0.2-1.3); Blood Urea Nitrogen 21 mg/dl (7-17); Calcium 9.4 mg/dl (8.4-10.2); Carbon Dioxide 30 mmol/L (22.0-30.0); Chloride 106 mmol/L (98-107); Creatinine Clearance Estimated 66 mL/min (50-200); Estimated Glomerular Filt Rate 53 ml/min (>60); GFR (African American) 64 ML/MIN (>60); Globulin 2.7 g/dL (1.3-3.2); Glucose 96 mg/dl (74-100); Lipase 188 U/L (23-300); Potassium 4.1 mmoL/L (3.5-5.1); Prothrombin Time 11.1 seconds (10.1-12.5); Sodium 143 mmol/L (136-145); Total Protein,Serum 7.3 g/dl (6.3-8.2)
[2024-10-02 20:54] LABS: Coronavirus 19, PCR Not Detected (NotDetected); Influenza A, PCR Not Detected (NotDetected); Influenza B, PCR Not Detected (NotDetected)
[2024-10-02] MEDS: 0.9 % SODIUM CHLORIDE 1000ML 1,000 ML 999 ML IV (20:55)
[2024-10-02] MEDS: KETOROLAC 30MG/ML VIAL 15 MG IV (20:56)
[2024-10-02] MEDS: ONDANSETRON 4MG/2ML VIAL 4 MG IV (20:56)
[2024-10-02] MEDS: ACETAMINOPHEN 500MG TAB 1000 MG PO (20:56)
[2024-10-02 21:04] LABS: NT Pro Brain Natriuretic Pep. 221 pg/mL (0-125); Troponin I < 0.01 ng/ml (0.00-0.034)
[2024-10-02 21:05] LABS: Eosinophils % 1 % (0-3); Lymphocytes % 13 % (10-50); Monocytes % 5 % (2-9); Neutrophils % 81 % (42-76); RBC Morphology Normal; Total Cells Counted 100
[2024-10-02 21:07] LABS: Platelet Estimate Normal
[2024-10-02 21:09] LABS: Procalcitonin 0.034 ng/mL (0.0-2.0)
[2024-10-02 21:16] LABS: Free Thyroxine Index 2.6 ug/dL (5.93-13.13); T4 (Thyroxine) 8.7 ug/dl (5.53-11.0); Triiodothryronine (T3) Uptake 30 % (23.5-40.5)
[2024-10-02 21:30] LABS: Thyroid Stimulating Hormone 2.04 uIU/mL (0.465-4.68)
[2024-10-02] MEDS: 0.9 % SODIUM CHLORIDE 50 ML VIAL IV (21:34)
[2024-10-02] MEDS: IOPAMIDOL-370 (76%);100ML BOTTLE 70 ML IV (21:35)
[2024-10-02] MEDS: SODIUM CHLORIDE 0.9% 10ML SYR (RAD ONLY) 10 ML IV (21:35)
[2024-10-02 22:58] LABS: Troponin I < 0.01 ng/ml (0.00-0.034)
[2024-10-02] MEDS: DOXYCYCLINE HYCL 100 MG TABLET PO (23:11)
== END 2024-10-02 23:21 | disposition home or self-care (01) ==
PROVIDERS: Physician Assistant; Emergency Provider Emergency Medicine; PCP Internal Medicine
DX: J18.9 Pneumonia, unspecified organism (principal); R07.89 Other chest pain; Z87.891 Personal history of nicotine dependence
CPT/HCPCS: 71275; 80053; 83690; 83735; 83880; 84145; 84436; 84443; 84479; 84484; 85007; 85025; 85027; 85610; 87636; 93005; 96361; 96374; 96375; 99285; J1885; J2405; J7030; Q9967

== ENCOUNTER 2024-10-19 14:12 | Outpatient (CLI) | payer OTHER, SELFPAY ==
--- NOTE | 2024-10-19 14:30 | CT_ITS ---
FINAL REPORT TECHNIQUE: Axial CT images were performed from the lung apices through the upper abdomen. Coronal and sagittal reformats were submitted. This study was performed with techniques to keep radiation doses as low as reasonably achievable (ALARA). Individualized dose reduction techniques using automated exposure control or adjustment of mA and/or kV according to the patient's size were employed. CLINICAL HISTORY: chest pain, pneumonia high resolution chest x 3 COMPARISON: CTA of the chest 10/02/2024 FINDINGS: CT CHEST WITHOUT CONTRAST HIGH RESOLUTION: CT examination of the chest was performed without intravenous contrast using supine inspiratory, prone, and expiratory views of the chest. A pacemaker is noted. There is no axillary adenopathy. There are bulky calcified prevascular and left hilar nodes present. Heart size is normal. There is no pericardial or pleural effusion. Limited images of the upper abdomen are unremarkable. Supine inspiratory films reveal a pleural-based opacity in the left lower lobe measuring 11 mm, best seen on image #41 of series 2. Some adjacent scarring is present. There is mild airspace opacity in the right base, minimal. The airspace opacity in the right base has improved since the prior exam, likely secondary to a resolving inflammatory process. In prone imaging, findings persist. In the expiratory imaging, there is no evidence of air trapping. IMPRESSION: Small airspace opacity in the right base, similar to the previous exam, likely secondary to a resolving inflammatory process, indeterminate, and recommend follow-up in 3 months. Pleural-based opacity in the left lower lobe, similar to the previous exam. This may be related to an involving inflammatory process, however, remains indeterminate, and suggest follow-up CT in 3 months. Reviewed, Interpreted and Dictated by Onel Dixon MD Transcribed by Ramona Redmond Authenticated and [facility]
--- OUTSIDE RECORDS SUMMARY | 2024-10-19 15:01 | XMS_ITS | Clinical Summary ---
Author Organization Healthcare Address [address] [place] [address] Care Team Providers Care Manager Merchandise Name Role Phone Mane Sol MD Primary Care Provider [phone] Immunizations Immunization Administration Dates Next Due TD (adult), 2 Lf tetanus tox oid, preservative free, adsorbed 09/04/2011 Family History Medical History Relation Name Comments Cardiac disorder Other Relation Name Status Comments Other Social History Tobacco Use Types Packs/Day Years Used Date Smoking Tobacco: Never Comments Unknown Sex and Gender Information Value Date Recorded Sex Assigned at Not on file Legal Sex Female 7:52 PM EDT Gender Identity Not on file Sexual Orientation Not on file Last Filed Vital Signs Vital Sign Reading Time Taken Comments Blood Pressure - - Pulse - - Temperature - - Respiratory Rate - - Oxygen Saturation - - Inhaled Oxygen Concentration - - Weight 66 kg (145 lb 9.1 oz) 02/19/2016 2:10 PM EDT Height 167.6 cm (5' 6 ) 02/19/2016 2:10 PM EDT Body Mass Index 23.5 02/19/2016 2:10 PM EDT Plan of Treatment Not on file Care Teams Manager Merchandise Relationship Specialty Start Date End Date Mane Sol MD [address] [facility] [address] [place] [id number] PCP - General 09/20/20
--- OUTSIDE RECORDS SUMMARY | 2024-10-19 15:01 | XMS_ITS | Clinical Summary ---
Author Organization [facility] Address [facility] [place] [place] [address] Care Team Providers Care Cane Weigher Helper Name Role Phone Unavailable Primary Care Provider Unavailabl e Source Comments This information has been disclosed to you from confidential records protectedfrom disclosure by state law. You shall make no further disclosure of thisinformation without the specific, written, and informed release of theindividual to whom it pertains, or as otherwise permitted by law. A generalauthorization for the release of medical or other information is not sufficientfor the purposes of therelease of HIV test results or diagnoses. 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
--- NOTE | 2024-10-19 15:16 | PC.NURSE ---
Pt could not complete PFT due to being unable to follow commands. 6MWT completed.
== END 2024-10-19 23:59 | disposition home or self-care (01) ==
LOC: RAD 14:12
PROVIDERS: PCP Internal Medicine; Visit Provider Internal Medicine Pulmonary Disease
DX: J84.9 Interstitial pulmonary disease, unspecified (principal); R91.8 Other nonspecific abnormal finding of lung field
CPT/HCPCS: 71250; 94618

== ENCOUNTER 2025-04-02 13:08 | Outpatient (CLI) | payer OTHER, SELFPAY ==
--- NOTE | 2025-04-02 13:30 | CT_ITS ---
FINAL REPORT TECHNIQUE: Thin section axial images were obtained from the lung apices through the upper abdomen without contrast. This study was performed with techniques to keep radiation doses as low as reasonably achievable (ALARA). Individualized dose reduction techniques using automated exposure control or adjustment of mA and/or kV according to the patient's size were employed. CLINICAL HISTORY: nodule COMPARISON: 10/19/2024 FINDINGS: There is no mediastinal, hilar, or axillary lymphadenopathy. No pleural or pericardial effusion. The previously identified left lower lobe pleural-based nodular opacity has resolved. Nodular opacities and reticular nodule opacities in the right middle lobe have not significantly changed. Limited, unenhanced evaluation of the upper abdomen is without acute abnormality. There is no acute osseous abnormality. IMPRESSION: Resolution of left lower lobe pleural-based nodular opacity. Stable small nodular and reticular opacities in the right middle lobe, favor postinflammatory. Reviewed, Interpreted and Dictated by Sully Vick MD Transcribed by [place] Authenticated and . [facility]
== END 2025-04-02 23:59 | disposition home or self-care (01) ==
LOC: RAD 13:09
PROVIDERS: PCP Internal Medicine; Visit Provider Internal Medicine Pulmonary Disease
DX: R91.8 Other nonspecific abnormal finding of lung field (principal)
CPT/HCPCS: 71250